=== PATIENT | female | born 1970 | race African-American/Black ===

== ENCOUNTER 2018-07-28 15:25 | Emergency (ER) | payer OTHER ==
[2018-07-28] MEDS ORDERED: AZITHROMYCIN 250 MG TAB ONE (16:19)
[2018-07-28] MEDS ORDERED: HYDROCODONE/CHLORPHEN 5 ML/OSYR ONE (16:19)
--- NOTE | 2018-07-28 16:31 | EDPHYS ---
Physician Documentation [facility] Name: Marily Parks Age: 48 yrs Sex: Female : 1970 Arrival Date: 07/28/2018 Time: 15:31 Bed 5 Private MD: None, None ED Physician Papi Pro HPI: 07/28 15:54 This 48 yrs old Black Female presents to ER via Ambulatory with complaints of Sore danie Throat. 15:54 The patient presents with sore throat. The patient describes throat pain as constant, danie raw, scratchy. Onset: The symptoms/episode began/occurred 2 day(s) ago. Severity of symptoms: At their worst the symptoms were mild, in the emergency department the symptoms are unchanged. Modifying factors: The symptoms are alleviated by nothing, the symptoms are aggravated by nothing. Associated signs and symptoms: The patient has no apparent associated signs or symptoms. The patient has not experienced similar symptoms in the past. Historical: - Allergies: 15:40 Iodine; aj1 - Home Meds: 15:40 lisinopril [Active]; carvedilol oral oral [Active]; aj1 - PMHx: 15:40 Hypertension; DVT; Pulmonary embolism; aj1 - Immunization history:: Flu vaccine is not up to date. - Social history:: Smoking status: Patient uses tobacco products, smokes one pack cigarettes per day. - Ebola Screening: : Patient denies travel to an Ebola-affected area in the 21 days before illness onset. - Family history:: not pertinent. ROS: 15:54 Constitutional: Negative for fever, chills, and weight loss, Eyes: Negative for injury, danie pain, redness, and discharge, ENT: Negative for injury, pain, and discharge, Neck: Negative for injury, pain, and swelling, Cardiovascular: Negative for chest pain, palpitations, and edema, Abdomen/GI: Negative for abdominal pain, nausea, vomiting, diarrhea, and constipation, Back: Negative for injury and pain, : Negative for injury, bleeding, discharge, and swelling, MS/Extremity: Negative for injury and deformity, Skin: Negative for injury, rash, and discoloration, Neuro: Negative for headache, weakness, numbness, tingling, and seizure, Psych: Negative for depression, anxiety, suicide ideation, homicidal ideation, and hallucinations, Allergy/Immunology: Negative for hives, rash, and allergies, Endocrine: Negative for neck swelling, polydipsia, polyuria, polyphagia, and marked weight changes, Hematologic/Lymphatic: Negative for swollen nodes, abnormal bleeding, and unusual bruising. 15:54 Respiratory: Positive for cough, with clear sputum. 15:59 Neck: Negative for danie 15:59 Cardiovascular: Negative for chest pain, orthopnea, palpitations, acute changes. Exam: 15:54 Constitutional: This is a well developed, well nourished patient who is awake, alert, danie and in no acute distress. Head/Face: Normocephalic, atraumatic. Eyes: Pupils equal round and reactive to light, extra-ocular motions intact. Lids and lashes normal. Conjunctiva and sclera are non-icteric and not injected. Cornea within normal limits. Periorbital areas with no swelling, redness, or edema. ENT: Nares patent. No nasal discharge, no septal abnormalities noted. Tympanic membranes are normal and external auditory canals are clear. Oropharynx with no redness, swelling, or masses, exudates, or evidence of obstruction, uvula midline. Mucous membranes moist. Neck: Trachea midline, no thyromegaly or masses palpated, and no cervical lymphadenopathy. Supple, full range of motion without nuchal rigidity, or vertebral point tenderness. No Meningismus. Chest/axilla: Normal chest wall appearance and motion. Nontender with no deformity. No lesions are appreciated. Cardiovascular: Regular rate and rhythm with a normal S1 and S2. No gallops, murmurs, or rubs. Normal PMI, no JVD. No pulse deficits. Respiratory: Lungs have equal breath sounds bilaterally, clear to auscultation and percussion. No rales, rhonchi or wheezes noted. No increased work of breathing, no retractions or nasal flaring. Abdomen/GI: Soft, non-tender, with normal bowel sounds. No distension or tympany. No guarding or rebound. No evidence of tenderness throughout. Back: No spinal tenderness. No costovertebral tenderness. Full range of motion. Skin: Warm, dry with normal turgor. Normal color with no rashes, no lesions, and no evidence of cellulitis. MS/ Extremity: Pulses equal, no cyanosis. Neurovascular intact. Full, normal range of motion. Neuro: Awake and alert, GCS 15, oriented to person, place, time, and situation. Cranial nerves II-XII grossly intact. Motor strength 5/5 in all extremities. Sensory grossly intact. Cerebellar exam normal. Normal gait. Psych: Awake, alert, with orientation to person, place and time. Behavior, mood, and affect are within normal limits. 15:54 Musculoskeletal/extremity: Extremities: all appear grossly normal, with no appreciated pain with palpation, Circulation is intact in all extremities. Pulses: are normal with no appreciated deficits, Compartment Syndrome exam of affected extremity: is normal. DVT Exam: No signs of deep vein thrombosis. no pain, no swelling, no tenderness, negative Homans' sign noted on exam, no appreciated bluish discoloration, no erythema, no increased warmth. 16:00 Cardiovascular: Heart sounds: normal, normal S1and S2, no S3 or S4, no murmur, no rub, danie no gallop, murmur, not appreciated, rub, not appreciated, gallop, not appreciated, Edema: is not appreciated, JVD: is not appreciated. Vital Signs: 15:40 BP 122 / 89; Pulse 75; Resp 18; Temp 97.4; Pulse Ox 99% on R/A; Weight 74.39 kg (R); aj1 Height 5 ft. 2 in. (157.48 cm) (R); Pain 6/10; 15:40 Body Mass Index 30.00 (74.39 kg, 157.48 cm) [facility] MDM: 15:45 Patient medically screened. [facility] 15:57 Data reviewed: vital signs. 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 [facility] 07/28 16:38 Order name: Urine Dipstick--Ancillary (enter results) 07/28 15:54 Order name: Chest Pa And Lat (2 Views) XRAY [facility] Administered Medications: 16:20 Drug: Tussionex Pennkinetic ER 5 ml Route: PO; la1 16:45 Follow up: Response: No adverse reaction [facility] 16:45 Drug: Zithromax 500 mg Route: PO; la1 16:45 Follow up: Response: No adverse reaction [facility] Disposition: 07/28/18 16:30 Discharged to Home. Impression: Acute pharyngitis, Cough. - Condition is Stable. - Discharge Instructions: Pharyngitis, Cool Mist Vaporizer, Pharyngitis, Byac-re-Nsdt, Cough, Adult, Ysjg-le-Hcnn, Cough, Adult, Sore Throat, Sjch-to-Ztsz. - Prescriptions for Cheratussin AC 10- 100 mg/5 mL Oral liquid - take 10 milliliter by ORAL route every 4 hours; 150 milliliter. Claritin 10 mg Oral Tablet - take 1 tablet by ORAL route once daily As needed; 15 tablet. Zithromax 500 mg Oral Tablet - take 1 tablet by ORAL route once daily for 4 days; 4 tablet. - Medication Reconciliation Form, Thank You Letter, Antibiotic Education, Prescription Opioid Use form. - Follow up: Private Physician; When: 2 - 3 days; Reason: Recheck today's complaints, Continuance of care, Re-evaluation by your physician. - Problem is new. - Symptoms have improved. Signatures: Dispatcher [employer] EDSusan Zavala RN RN aj1 Papi Pro MD MD cha Williams, Irene, RN RN iw Bj Garcia RN RN la1 Corrections: (The following items were deleted from the chart) 16:47 16:30 07/28/2018 16:30 Discharged to Home. Impression: Acute pharyngitis; Cough. iw Condition is Stable. Discharge Instructions: Pharyngitis, Cool Mist Vaporizer, Pharyngitis, Kcpt-hy-Fiit, Cough, Adult, Pktg-jb-Wobl, Cough, Adult, Sore Throat, [id number]-[id number]. Prescriptions for Cheratussin AC 10-100 mg/5 mL Oral liquid - take 10 milliliter by ORAL route every 4 hours; 150 milliliter, Claritin 10 mg Oral Tablet - take 1 tablet by ORAL route once daily As needed; 15 tablet, Zithromax Z-Jefferson 250 mg Oral Tablet - take 1 tablet by ORAL route as directed for 5 days Day 1 - take two (2) tablets one time. Day 2, 3, 4 , 5 take one (1) tablet once daily.; 6 tablet. and Forms are Medication Reconciliation Form, Thank You Letter, Antibiotic Education, Prescription Opioid Use. Follow up: Private Physician; When: 2 - 3 days; Reason: Recheck today's complaints, Continuance of care, Re-evaluation by your physician. Problem is new. Symptoms have improved. danie
--- NOTE | 2018-07-28 16:31 | ER ---
Nurse's Notes [facility] Name: Marily Parks Age: 48 yrs Sex: Female : 1970 Arrival Date: 07/28/2018 Time: 15:31 Bed 5 Private MD: None, None Diagnosis: Acute pharyngitis;Cough Presentation: 07/28 15:35 Presenting complaint: Patient states: She just got home from a cruise and when she got aj1 home her blood pressure got high and her foot started swelling and now she's starting to have a cough as well. Denies fever. Transition of care: patient was not received from another setting of care. Onset of symptoms was July 25, 2018. Risk Assessment: Do you want to hurt yourself or someone else? Patient reports no desire to harm self or others. Initial Sepsis Screen: Does the patient meet any 2 criteria? No. Patient's initial sepsis screen is negative. Does the patient have a suspected source of infection? No. Patient's initial sepsis screen is negative. Care prior to arrival: None. 15:35 [facility] 15:35 Acuity: OLEKSANDR 3 aj1 Triage Assessment: 15:40 General: Appears in no apparent distress. uncomfortable, Behavior is calm, cooperative, aj1 appropriate for age. Pain: Complains of pain in back Pain currently is 6 out of 10 on a pain scale. EENT: Reports sore throat. Neuro: Level of Consciousness is awake, alert, obeys commands. Cardiovascular: Patient's skin is warm and dry. Respiratory: Airway is patent Respiratory effort is even, unlabored, Respiratory pattern is regular, symmetrical. Historical: - Allergies: 15:40 Iodine; aj1 - Home Meds: 15:40 lisinopril [Active]; carvedilol oral oral [Active]; aj1 - PMHx: 15:40 Hypertension; DVT; Pulmonary embolism; aj1 - Immunization history:: Flu vaccine is not up to date. - Social history:: Smoking status: Patient uses tobacco products, smokes one pack cigarettes per day. - Ebola Screening: : Patient denies travel to an Ebola-affected area in the 21 days before illness onset. - Family history:: not pertinent. Screenin:06 Abuse screen: Denies threats or abuse. Nutritional screening: On. Tuberculosis la1 screening: No symptoms or risk factors identified. Fall Risk None identified. Assessment: 16:05 General: Appears in no apparent distress. Behavior is calm, cooperative. Neuro: Level la1 of Consciousness is awake, alert, obeys commands, Oriented to person, place, time, situation. Cardiovascular: Heart tones S1 S2 present. Respiratory: Airway is patent Trachea midline Respiratory effort is even, unlabored, Respiratory pattern is regular, symmetrical, Breath sounds are clear bilaterally. Respiratory: Parent/caregiver reports the patient having cough that is non-productive. GI: No signs and/or symptoms were reported involving the gastrointestinal system. : No signs and/or symptoms were reported regarding the genitourinary system. Vital Signs: 15:40 BP 122 / 89; Pulse 75; Resp 18; Temp 97.4; Pulse Ox 99% on R/A; Weight 74.39 kg (R); aj1 Height 5 ft. 2 in. (157.48 cm) (R); Pain 6/10; 15:40 Body Mass Index 30.00 (74.39 kg, 157.48 cm) aj1 ED Course: 15:31 Patient arrived in ED. mr 15:31 None, None is Private Physician. mr 15:37 Triage completed. aj1 15:40 Arm band placed on Patient placed in an exam room. aj1 15:45 Papi Pro MD is Attending Physician. danie 15:50 Bj Garcia, MICHAEL is Primary Nurse. la1 16:06 Bed in low position. la1 16:43 Chest Pa And Lat (2 Views) XRAY In Process Unspecified. EDMS 16:49 No provider procedures requiring assistance completed. Patient did not have IV access la1 during this emergency room visit. Administered Medications: 16:20 Drug: Tussionex Pennkinetic ER 5 ml Route: PO; la1 16:45 Follow up: Response: No adverse reaction la1 16:45 Drug: Zithromax 500 mg Route: PO; la1 16:45 Follow up: Response: No adverse reaction la1 Outcome: 16:30 Discharge ordered by . danie 16:47 Patient left the ED. iw 16:50 Discharged to home ambulatory. la1 16:50 Condition: stable 16:50 Discharge instructions given to patient, Instructed on discharge instructions, follow up and referral plans. medication usage, Demonstrated understanding of instructions, follow-up care, medications, Prescriptions given X 3. Signatures: Dispatcher [employer] Susan Mcdowell RN RN aj1 Papi Pro MD MD cha Rivera, Fabby mr Patt Fernandez RN RN iw Attema, Lee, RN RN la1
--- NOTE | 2018-07-28 16:49 | RAD REPORT ---
EXAM DESCRIPTION: RAD - Chest Pa And Lat (2 Views) - 07/28/2018 4:43 pm CLINICAL HISTORY: COUGH Chest pain. COMPARISON: No comparisons FINDINGS: The lungs are clear. The heart is normal in size. No displaced fractures. Mild thoracic de xtroscoliosis. IMPRESSION: No acute or concerning finding suspected.
[2018-07-28 16:50] LABS: Urine Blood 2+ (NEG); Urine Glucose NEGATIVE (NEG); Urine Protein TRACE (NEG)
== END 2018-07-28 16:47 | disposition home or self-care (01) ==
LOC: ER 15:25
DX: J02.9 Acute pharyngitis, unspecified (principal); R05 Cough; F17.210 Nicotine dependence, cigarettes, uncomplicated; I10 Essential (primary) hypertension; Z79.899 Other long term (current) drug therapy; Z86.711 Personal history of pulmonary embolism; Z86.718 Personal history of other venous thrombosis and embolism
CPT/HCPCS: 71046; 81003; 99283

== ENCOUNTER 2018-09-19 15:36 | Emergency (ER) | payer OTHER ==
[2018-09-19] MEDS ORDERED: METHYLPREDNISOLONE 125 MG INJ ONE (16:26)
--- NOTE | 2018-09-19 17:28 | EDPHYS ---
Physician Documentation [facility] Name: Marily Parks Age: 48 yrs Sex: Female : 1970 Arrival Date: 09/19/2018 Time: 15:39 Bed 11 Private MD: ED Physician Zach Ibrahim HPI: 09/19 17:39 This 48 yrs old Black Female presents to ER via Ambulatory with complaints of Headache, kb Body Aches. 17:41 The patient or guardian reports nasal congestion. Onset: The symptoms/episode kb began/occurred last week. Severity of symptoms: At their worst the symptoms were mild, in the emergency department the symptoms are unchanged. Modifying factors: The symptoms are alleviated by nothing, the symptoms are aggravated by nothing. Associated signs and symptoms: Pertinent positives: nasal congestion. The patient has not experienced similar symptoms in the past. The patient has not recently seen a physician. Pt reports nasal congestion since last week. Denies fever. . Historical: - Allergies: 15:52 Iodine; hb - Home Meds: 15:52 carvedilol Oral [Active]; Lisinopril [Active]; hb - PMHx: 15:52 DVT; Hypertension; Pulmonary Embolism; hb - Immunization history:: Adult Immunizations up to date. - Social history:: Smoking status: Patient uses tobacco products, smokes one pack cigarettes per day. - Ebola Screening: : No symptoms or risks identified at this time. ROS: 17:42 Constitutional: Negative for fever, chills, and weight loss, Cardiovascular: Negative kb for chest pain, palpitations, and edema, Respiratory: Negative for shortness of breath, cough, wheezing, and pleuritic chest pain, Abdomen/GI: Negative for abdominal pain, nausea, vomiting, diarrhea, and constipation, MS/Extremity: Negative for injury and deformity, Skin: Negative for injury, rash, and discoloration, Neuro: Negative for headache, weakness, numbness, tingling, and seizure. 17:42 ENT: Positive for sinus congestion. Exam: 17:42 Constitutional: This is a well developed, well nourished patient who is awake, alert, kb and in no acute distress. Head/Face: Normocephalic, atraumatic. ENT: Nares patent. No nasal discharge, no septal abnormalities noted. Tympanic membranes are normal and external auditory canals are clear. Oropharynx with no redness, swelling, or masses, exudates, or evidence of obstruction, uvula midline. Mucous membranes moist. Neck: Trachea midline, no thyromegaly or masses palpated, and no cervical lymphadenopathy. Supple, full range of motion without nuchal rigidity, or vertebral point tenderness. No Meningismus. Chest/axilla: Normal chest wall appearance and motion. Nontender with no deformity. No lesions are appreciated. Cardiovascular: Regular rate and rhythm with a normal S1 and S2. No gallops, murmurs, or rubs. Normal PMI, no JVD. No pulse deficits. Respiratory: Lungs have equal breath sounds bilaterally, clear to auscultation and percussion. No rales, rhonchi or wheezes noted. No increased work of breathing, no retractions or nasal flaring. Abdomen/GI: Soft, non-tender, with normal bowel sounds. No distension or tympany. No guarding or rebound. No evidence of tenderness throughout. Skin: Warm, dry with normal turgor. Normal color with no rashes, no lesions, and no evidence of cellulitis. MS/ Extremity: Pulses equal, no cyanosis. Neurovascular intact. Full, normal range of motion. Neuro: Awake and alert, GCS 15, oriented to person, place, time, and situation. Cranial nerves II-XII grossly intact. Motor strength 5/5 in all extremities. Sensory grossly intact. Cerebellar exam normal. Normal gait. Vital Signs: 15:51 BP 127 / 63; Pulse 68; Resp 16; Temp 98.3; Pulse Ox 98% on R/A; Pain 9/10; hb MDM: 15:59 Patient medically screened. kb 17:40 Data reviewed: vital signs, nurses notes. Data interpreted: Pulse oximetry: on room air kb is 98 %. Interpretation: normal. Counseling: I had a detailed discussion with the patient and/or guardian regarding: the historical points, exam findings, and any diagnostic results supporting the discharge/admit diagnosis, lab results, the need for outpatient follow up, a family practitioner, to return to the emergency department if symptoms worsen or persist or if there are any questions or concerns that arise at home. 09/19 15:51 Order name: Strep; Complete Time: 16:34 hb 09/19 15:51 Order name: Flu; Complete Time: 16:54 hb 09/19 16:38 Order name: Throat Culture [facility] Administered Medications: 16:20 Drug: SOLU-Medrol 125 mg Route: IM; Site: right gluteus; ss Disposition: 09/19/18 17:27 Discharged to Home. Impression: Nasal congestion. - Condition is Stable. - Discharge Instructions: Nasal Allergies, Kskq-[id number]. - Medication Reconciliation Form, Thank You Letter, Antibiotic Education, Prescription Opioid Use form. - Follow up: Emergency Department; When: As needed; Reason: Worsening of condition. Follow up: Private Physician; When: 2 - 3 days; Reason: Recheck today's complaints, Continuance of care, Re-evaluation by your physician. Addendum: 09/26/2018 09:33 Co-signature as Attending Physician, Zach Ibrahim MD I agree with the assessment and k dr plan of care. Signatures: Dispatcher [employer] [facility] Kira Rogers, GEMINI-C VARIETY SAW OPERATOR-Zach Aguirre MD MD [facility] [address] Renee Null RN RN Ayanna Fernando RN RN Corrections: (The following items were deleted from the chart) 09/19 18:02 17:27 09/19/2018 17:27 Discharged to Home. Impression: Nasal congestion. Condition is ss Stable. Forms are Medication Reconciliation Form, Thank You Letter, Antibiotic Education, Prescription Opioid Use. Follow up: Emergency Department; When: As needed; Reason: Worsening of condition. Follow up: Private Physician; When: 2 - 3 days; Reason: Recheck today's complaints, Continuance of care, Re-evaluation by your physician. kb
--- NOTE | 2018-09-19 17:28 | ER ---
Nurse's Notes [facility] Name: Marily Parks Age: 48 yrs Sex: Female : 1970 Arrival Date: 09/19/2018 Time: 15:39 Bed 11 Private MD: Diagnosis: Nasal congestion Presentation: 09/19 15:49 Presenting complaint: Diarrhea, productive cough, sinus congestion, sore throat, and hb body aches x 3 days. Transition of care: patient was not received from another setting of care. Onset of symptoms was September 16, 2018. Risk Assessment: Do you want to hurt yourself or someone else? Patient reports no desire to harm self or others. Initial Sepsis Screen: Does the patient meet any 2 criteria? No. Patient's initial sepsis screen is negative. Does the patient have a suspected source of infection? No. Patient's initial sepsis screen is negative. Care prior to arrival: None. 15:49 Method Of Arrival: Ambulatory hb 15:49 Acuity: OLEKSANDR 4 hb Historical: - Allergies: 15:52 Iodine; hb - Home Meds: 15:52 carvedilol Oral [Active]; Lisinopril [Active]; hb - PMHx: 15:52 DVT; Hypertension; Pulmonary Embolism; hb - Immunization history:: Adult Immunizations up to date. - Social history:: Smoking status: Patient uses tobacco products, smokes one pack cigarettes per day. - Ebola Screening: : No symptoms or risks identified at this time. Screenin:15 Abuse screen: Denies threats or abuse. Denies injuries from another. Nutritional ss screening: No deficits noted. Tuberculosis screening: No symptoms or risk factors identified. Never had TB. Fall Risk None identified. Assessment: 16:15 General: Appears in no apparent distress. comfortable, Behavior is calm, cooperative, ss Reports feeling ill for 2-3 days, Denies fever. Pain: Complains of pain in general body aches Pain currently is 8 out of 10 on a pain scale. Quality of pain is described as aching. Neuro: Level of Consciousness is awake, alert, obeys commands, Oriented to person, place, time, situation. Cardiovascular: Capillary refill < 3 seconds is brisk in bilateral fingers. Respiratory: Airway is patent Respiratory effort is even, unlabored, Respiratory pattern is regular, symmetrical. EENT: Oral mucosa is moist. Throat is clear. EENT: Reports nasal congestion. Derm: Skin is intact, is healthy with good turgor, Skin is dry, Skin is pink, warm \T\ dry. normal. Musculoskeletal: Circulation, motion, and sensation intact. Range of motion: intact in all extremities, Swelling absent. Vital Signs: 15:51 BP 127 / 63; Pulse 68; Resp 16; Temp 98.3; Pulse Ox 98% on R/A; Pain 9/10; hb ED Course: 15:39 Patient arrived in ED. rg4 15:51 Triage completed. hb 15:51 Arm band placed on. hb 15:58 Kira Rogers FNP-C is PHCP. kb 15:58 Zach Ibrahim MD is Attending Physician. kb 16:15 Patient has correct armband on for positive identification. Bed in low position. Call ss light in reach. 16:20 Renee Null, MICHAEL is Primary Nurse. ss 18:01 No provider procedures requiring assistance completed. Patient did not have IV access ss during this emergency room visit. Administered Medications: 16:20 Drug: SOLU-Medrol 125 mg Route: IM; Site: right gluteus; ss Outcome: 17:27 Discharge ordered by . kb 18:01 Discharged to home ambulatory. ss 18:01 Condition: good 18:01 Discharge instructions given to patient, family, Instructed on discharge instructions, follow up and referral plans. Demonstrated understanding of instructions, follow-up care, medications. 18:02 Patient left the ED. ss Signatures: Kira Rogers FNP-C FNP-Renee Koenig RN RN Ayanna Fernando RN RN Nette Frederick rg4
== END 2018-09-19 18:02 | disposition home or self-care (01) ==
LOC: ER 15:36
DX: R09.81 Nasal congestion (principal); Z88.8 Allergy status to other drugs, medicaments and biological substances; I82.409 Acute embolism and thrombosis of unspecified deep veins of unspecified lower extremity; I10 Essential (primary) hypertension; F17.210 Nicotine dependence, cigarettes, uncomplicated
CPT/HCPCS: 87070; 87081; 87804 ×2; J2930

== ENCOUNTER 2020-03-24 12:05 | Emergency (ER) | payer OTHER ==
--- OUTSIDE RECORDS SUMMARY | 2020-03-24 12:31 | XMS REPORT | Summary of Care ---
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 [address] , [address] [place] [address] Phone: Fax: Encounter Details Date Type Department Care Team Description 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 FLUoxetine 20 mg Take 1 capsule 30 capsule 0 10/19/2017 Active capsuleIndications: by mouth daily. Other depression metroNIDAZOLE (FLAGYL) Take 1 tablet by 14 tablet 0 10/19/2017 Active 500 mg mouth 2 (two) tabletIndications: times daily. Bacterial vaginosis buPROPion SR Take 1 tablet by 30 tablet 0 11/02/2017 Active (WELLBUTRIN SR) 150 mg mouth daily. SR tabletIndications: Other depression acetaminophen-codeine Take 1 tablet by 5 tablet 0 10/17/2018 Active (TYLENOL-CODEINE #3) mouth every 4 300-30 mg (four) hours as tabletIndications: needed for Pain Facial laceration, (scale 4-6). initial encounter CARVEDILOL ORAL Take by mouth. 0 Active documented as of this encounter (statuses as of 01/28/2020) Active Problems Problem Noted Date Abnormality of both breasts on screening mammogram Overview: IMPRESSION: RIGHT BREAST: Benign, no evidence of mal ignancy. Normal interval follow-up is recommended in 12 months. LEFT BREAST: Negative, no evidence of ma lignancy. Normal interval follow-up is recommended in 12 months. OVERALL ASSESSMENT - CATEGORY 2 - BENIGN END OF IMPRESSION Obesity (BMI 30.0-34.9) 10/19/2017 documented as of this encounter (statuses as of 01/28/2020) Resolved Problems Problem Noted Date Resolved Date Obesity (BMI 30-39.9) 07/23/2016 10/19/2017 documented as of this encounter (statuses as of 01/28/2020) Immunizations Name Administration Dates Next Due Td 10/16/2018 documented as of this encounter Social History Tobacco Use Types Packs/Day Years Used Date Current Every Day Smoker Cigarettes 1 2 Sta rted: 09/03/2015 Smokeless Tobacco: Never Used Alcohol Use Drinks/Week oz/Week Comments Yes Sex Assigned at Date Recorded Not on file Job Start Date Occupation Industry Not on file Not on file Not on file Travel History Travel Start Travel End No recent travel history available. COVID-19 Exposure Response Date Recorded In the last month, have you been in contact with No / Unsure 01/28/2020 2:12 PM CDT someone who was confirmed or suspected to have Coronavirus / COVID-19? documented as of this encounter Last Filed Vital Signs Not on filedocumented in this encounter Plan of Treatment Date Type Specialty Care Team Description 02/04/2020 Office Visit Orthopedic Surgery Karyn Zhu MD [address] [phone] Name Type Priority Associated Diagnoses Date/Ti me CBC WITH DIFF LAB Routine Chronic pain of multiple 4:06 PM CDT joints CBC WITH DIFFERENTIAL LAB Routine Chronic pain of mul tiple 01/28/2020 4:06 PM CDT joints Health Maintenance Due Date Last Done Comments DTaP,Tdap,and Td Vaccines (1 1982 10/16/2018 - Tdap) Breast Cancer Screening 11/21/2018 11/21/2017 (MAMMOGRAM) INFLUENZA VACCINE (Season 05/04/2020 Ended) PAP SMEAR 10/19/2020 10/19/2017, 08/10/2005, 07/05/2004 PNEUMOCOCCAL 0-64 YEARS Aged Out No longe r eligible based COMBINED SERIES on patient's age to complete this to pic documented as of this encounter Results Not on filedocumented in this encounter Visit Diagnoses Diagnosis Chronic pain of multiple joints Pain in joint, multiple sites documented in this encounter Insurance Payer Benefit Plan / Subscriber ID Effective Dates Phone Addre ss Type Group [facility] STAR xxxxxxxxx 2017-Present Medicaid COMM PLAN - PLUS MANAGED MEDICAID documented as of this encounter Advance Directives Name Relationship Healthcare Agent Communication Relationship Virgil Howard Significant Other Primary healthcare agent
--- OUTSIDE RECORDS SUMMARY | 2020-03-24 12:31 | XMS REPORT | Summary of Care ---
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 [address] [place] [address] [address] [place] [address] Phone: Fax: Encounter Details Date Type Department Care Team Description 01/28/2020 Hospital En[facility] Rad[facility] [address] [place] [place] [address] [place] [address] [place], [place] [phone] Allergies Active Allergy Reactions Severity Noted Date Comments Iodine Anxiety 07/23/2016 documented as of this encounter (statuses as of 01/29/2020) Medications Medication Sig Dispensed Refills Start Date [...] as of this encounter (statuses as of 01/29/2020) Active Problems Problem Noted Date Abnormality of [...] as of this encounter (statuses as of 01/29/2020) Resolved Problems Problem Noted Date Resolved Date Obesity (BMI 30-39.9) 07/23/2016 10/19/2017 documented as of this encounter (statuses as of 01/29/2020) Immunizations Name Administration Dates Next Due Td [...] Office Visit Orthopedic Surgery Karyn Zhu MD [address] [phone] Name Type Priority Associated Diagnoses Date/Ti me XR HAND 3+ VW BILATERAL IMAGING Routine Chronic pain of 0 01/28/2020 2:19 PM multiple joints CDT Name Type Priority Associated Diagnoses Order S chedule XR HAND 3+ VW IMAGING Routine Chronic pain of 1 Occurrenc es starting BILATERAL multiple joints 01/28/2020 u ntil 01/28/2020 Health Maintenance Due Date Last Done Comments PNEUMOCOCCAL 0-64 YEARS COMBINED 1977 SERIES (1 of 1 - PPSV23) DTaP,Tdap,and Td Vaccines (1 - Tdap) 1982 10/16/2018 Breast Cancer Screening (MAMMOGRAM) 11/21/2018 11/21/2017 INFLUENZA VACCINE (Season Ended) 2020 PAP SMEAR 10/19/2020 10/19/2017, 08/10/2005, 07/05/2004 documented as of this encounter Results Not on filedocumented in this encounter Visit Diagnoses Diagnosis Chronic pain of multiple joints Pain in joint, multiple sites documented in this encounter Insurance Payer Benefit Plan / Subscriber ID Effective Phone Address T ype Group Dates [facility] STAR xxxxxxxxx 2017-Prese Medicaid HEALTHCARE COMM PLUS nt PLAN - MANAGED MEDICAID [facility] [id number] 2020-Prese Medic are Adv HEALTHCARE - HEALTHCARE DUAL nt H [place] MANAGED COMPLETE HMO MEDICARE documented as of this encounter Advance Directives Name Relationship Healthcare Agent Communication Relationship Virgil Howard Significant Other Primary healthcare agent
--- OUTSIDE RECORDS SUMMARY | 2020-03-24 12:31 | XMS REPORT | Summary of Care ---
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 [address] [place] [address] [address] [place] [address] Phone: Fax: Encounter Details Date Type Department Care Team Description 01/28/2020 Hospital [facility] [address] [place] [address] [place] [address] [place], [place] [phone] Allergies Active Allergy Reactions Severity Noted Date [...] Orthopedic Surgery Karyn Zhu MD [address] [phone] Name Type Priority Associated Diagnoses Date/Ti me XR KNEE 3 VW BILATERAL IMAGING Routine Chronic pain of 2:18 PM multiple joints CDT Name Type Priority Associated Diagnoses Order S chedule XR KNEE 3 VW BILATERAL IMAGING Routine Chronic pain of 1 Occurrences starting multiple joints 01/28/2020 u ntil 01/28/2020 Health [...] / Subscriber ID Effective Phone Address T e Group [facility] STAR xxxxxxxxx 2017-Prese Medicaid HEALTHCARE COMM PLUS nt PLAN - MANAGED MEDICAID [facility] [id number] 2020-Prese Medic are Adv HEALTHCARE - HEALTHCARE DUAL nt H MO MANAGED COMPLETE HMO MEDICARE documented as of this encounter Advance Directives Name Relationship Healthcare Agent Communication Relationship Virgil Howard Significant Other Primary healthcare agent
--- OUTSIDE RECORDS SUMMARY | 2020-03-24 12:31 | XMS REPORT | Continuity of Care Document ---
:[address] [facility] t Address [address] [place] [address] Care Team Providers Name Role Phone Hever Zhu MD Attending Clinician Problems This patient has no known problems. Allergies, Adverse Reactions, Alerts This patient has no known allergies or adverse reactions. Medications This patient has no known medications. Procedures This patient has no known procedures. Encounters Start End Encounter Admission Attending Care Care Encounter Source Date/Time Date/Time Type Type Clinicians Facility Department ID 2020-02-04 2020-02-04 Office ALIZE Zhu [phone] [id number] 16:01:00 16:27:25 Visit [facility] [id number] Surgical [id number] [facility] [id number] [address] Results This patient has no known results.
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
--- OUTSIDE RECORDS SUMMARY | 2020-03-24 12:32 | XMS REPORT | Summary of Care ---
:1970 Author Organization [facility] Address [address] [place] [address] Care Team Providers Name Role Phone Suzanne Hinkle Primary Care Provider Reason for Visit Reason Comments Follow-up Results Encounter Details Date Type Department Care Team Description 02/04/2020 Office Visit [facility] Orthopaedic Ben Zhu hronic pain of Surgery- Lokesh Kathleen MD multiple joints [address], [address] (Primary [address]x) [address] [place] [address] [place] [address] [address] [place], [place] [phone] Allergies Active Allergy Reactions Severity Noted [...] Body Mass Index 33.65 10/28/2018 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
--- OUTSIDE RECORDS SUMMARY | 2020-03-24 12:32 | XMS REPORT | Summary of Care ---
:1970 Author Organization [facility] - Health Address [address] [place] [address] Care Team Providers Name Role Phone Suzanne Hinkle Primary Care Provider Encounter Details Date Type Department Care Team Description 02/04/2020 Orders Only [facility] Doctor Unassigned, No [address] [facility] [place] [address] [address] [place] [address] Allergies Active Allergy Reactions Severity Noted Date Comments Iodine Anxiety 07/23/2016 documented as of this encounter (statuses as of 02/04/2020) Medications Medication Sig Dispensed Refills Start Date [...] as of this encounter (statuses as of 02/04/2020) Active Problems Problem Noted Date Abnormality of [...] as of this encounter (statuses as of 02/04/2020) Resolved Problems Problem Noted Date Resolved Date Obesity (BMI 30-39.9) 07/23/2016 10/19/2017 documented as of this encounter (statuses as of 02/04/2020) Immunizations Name Administration Dates Next Due Td [...] Office Visit Orthopedic Surgery Karyn Zhu MD Arrived [address] [place] [address] [phone] Health Maintenance Due Date Last Done Comments PNEUMOCOCCAL 0-64 YEARS COMBINED 1977 SERIES (1 of 1 - PPSV23) DTaP,Tdap,and Td Vaccines (1 - Tdap) 1982 10/16/2018 Breast Cancer Screening (MAMMOGRAM) 11/21/2018 11/21/2017 INFLUENZA VACCINE (Season Ended) 2020 PAP SMEAR 10/19/2020 10/19/2017, 08/10/2005, 07/05/2004 Depression Screening 01/27/2021 01/28/2020 documented as of this encounter Procedures Procedure Name Priority Date/Time Associated Diagnosis Comme nts NOTICE OF BILLING Routine 02/04/2020 4:00 PM CDT PRACTICES FOR MEDICARE PATIENTS documented in this encounter Results Not on filedocumented in this encounter Insurance Payer Benefit Plan / Subscriber ID Effective Phone Address T ype Group Dates [facility] [id number] 2017-Prese Medic are Adv HEALTHCARE - HEALTHCARE DUAL nt P PO MANAGED COMPLETE MEDICARE [facility] [place] STAR xxxxxxxxx 2017-Prese Medicaid HEALTHCARE COMM PLUS nt PLAN - MANAGED MEDICAID [facility] [id number] 2020-Prese Medic are Adv HEALTHCARE - HEALTHCARE DUAL nt H MO MANAGED COMPLETE HMO MEDICARE documented as of this encounter Advance Directives Name Relationship Healthcare Agent Communication Relationship Virgil Howard Significant Other Primary healthcare agent
--- OUTSIDE RECORDS SUMMARY | 2020-03-24 12:32 | XMS REPORT | Summary of Care ---
:1970 Author Organization [facility] Address [address] [place] [address] Care Team Providers Name Role Phone Suzanne Hinkle Primary Care Provider Reason for Referral Radiology Services (Routine) Status Reason Specialty Diagnoses / Referred By Referred To Procedures Contact Contact New Request Diagnostic Diagnoses Chronic pain of multiple joints Ben Zhu Radiology Procedures XR HAND 3+ VW BILATERAL MD Soraya [facility] [place] [address] Radiology Services (Routine) Status Reason Specialty Diagnoses / Referred By Referred To Procedures Contact Contact New Request Diagnostic Diagnoses Chronic pain of multiple joints Ben Zhu Radiology Procedures XR KNEE 3 VW BILATERAL MD [address] [place] [address] [place] [address] Reason for Visit Reason Comments Knee Pain bilateral Arthritis hands Auth/Cert Status Reason Specialty Diagnoses / Procedures Referred By C husam Referred To Contact Phlebotomy Diagnoses Chronic pain of multiple joints Adc Pob Lab Draw Procedures CBC URIC ACID STREP O AB (ASO) SED RATE RH FACTOR C REACTIVE PROTEIN ANTI-NUC AB 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 [address] [place] [address] Phone: Fax: Encounter Details Date Type Department Care Team Description 01/28/2020 Office Visit [facility] Orthopaedic Ben Zhu hronic pain of Surgery- Lokesh Kathleen MD multiple joints [address], [address] (Primary Dx) [address] [place] [address] [place] [address] [address] [place], [place] [phone] [address] [phone] Allergies Active Allergy Reactions Severity Noted Date [...] Body Mass Index 33.32 10/28/2018 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 Progress Notes Ben [...] file Gets together: Not on file Attends shinto service: Not on file Active member of [...] Office Visit Orthopedic Surgery Karyn Zhu MD [address] [place] [address] [phone] Name Type Priority Associated Diagnoses Date/Ti [...] 2.9 - 6.0 mg/dL [facility] Specimen Blood Performing Organization Address City/[facility] Phone Number [facility] CLIA: [id number], [address] [place] [address] SEDIMENTATION RATE (01/28/2020 4:06 PM CDT) Pathologist Sig nature ESR 48 (H) 0 - 20 mm/HR [facility] Specimen Blood Performing Organization Address City/[facility]/Zipcode Phone Number [facility] CLIA: [id number], [address] [place] [address] RHEUMATOID FACTOR (01/28/2020 4:06 PM CDT) Pathologist Sig nature RF <20 <20 IU/mL [facility] Specimen Blood Performing Organization Address City/[facility]/Zipcode Phone Number [facility] CLIA: [id number], [address] [place] [address] [address] [facility] C-REACTIVE PROTEIN (01/28/2020 4:06 PM CDT) Pathologist Sig nature CRP 0.5 <0.8 mg/dL [facility] Specimen Blood Performing Organization Address City/[facility]/Zipcode Phone Number [facility] CLIA: [id number], [address] [place] [address] [address] [facility] XR HAND 3+ VW BILATERAL (01/28/2020 2:19 [...] mild degenerative changes PACS Performing Organization Address City/State[facility] Phone Number PACS documented in this encounter Visit Diagnoses Diagnosis Chronic pain of multiple joints - Primar y Pain in joint, multiple sites documented in this encounter Insurance Payer Benefit Plan / Subscriber ID Effective Phone Address T ype Group Dates [facility] [place] STAR xxxxxxxxx 2017-Prese Medicaid HEALTHCARE COMM PLUS nt PLAN - MANAGED MEDICAID [facility] [id number] 2020-Prese Medic are Adv HEALTHCARE - HEALTHCARE DUAL nt H MO MANAGED COMPLETE HMO MEDICARE documented as of this encounter Advance Directives Name Relationship Healthcare Agent Communication Relationship Virgil Howard Significant Other Primary healthcare agent "
--- NOTE | 2020-03-24 15:14 | RAD REPORT ---
EXAM DESCRIPTION: CT - Stone Protocol - 03/24/2020 2:53 pm CLINICAL HISTORY: Abdominal pain. Flank pain COMPARISON: None. TECHNIQUE: Computed axial tomography of the abdomen pelvis was obtained without oral or IV contrast. Lack of IV and oral contrast limits evaluation of solid organs, bowel, and vessels. Coronal reformat candido images were obtained and reviewed. All CT scans are performed using dose optimization technique as appropriate and may include automated exposure control or mA/KV adjustment according to patient size. FINDINGS: A renal calculus is not seen. An ureteral calculus is not noted. A bladder calculus is not present. The liver, spleen, pancreas and adrenals appear grossly normal Diverticula stem from the colon without evidence of diverticulitis. The appendix appears normal The uterus is enlarged and lobulated measuring 16 x 9 x 12 centimeters. Mild anterior subluxation L5 on S1. Spondylosis results in spinal stenosis at this level IMPRESSION: Negative for a genitourinary calculus Enlarged uterus probably secondary to fibroids
--- NOTE | 2020-03-24 15:44 | ER ---
Nurse's Notes [facility] Name: Marily Parks Age: 49 yrs Sex: Female : 1970 Arrival Date: 03/24/2020 Time: 12:16 Bed 27 Private MD: Diagnosis: Low back pain Presentation: 03/24 12:52 Chief complaint: Patient states: Left back and leg pain, right shoulder pain x 1 week, jl7 denies trauma. Coronavirus screen: Patient denies a cough. Patient denies shortness of breath or difficulty breathing. Patient denies measured and/or subjective temperature greater than 100.4F prior to today's visit. Patient denies travel on a cruise ship or to a country the [facility] currently lists as an affected area. Patient denies contact with known and/or suspected case of COVID-19. Proceed with normal triage. Ebola Screen: No symptoms or risks identified at this time. Initial Sepsis Screen: Does the patient meet any 2 criteria? No. Patient's initial sepsis screen is negative. Does the patient have a suspected source of infection? No. Patient's initial sepsis screen is negative. Risk Assessment: Do you want to hurt yourself or someone else? Patient reports no desire to harm self or others. Onset of symptoms was March 18, 2020. Care prior to arrival: None. 12:52 Method Of Arrival: Ambulatory [facility] 12:52 Acuity: OLEKSANDR 4 jl7 14:04 Chief complaint: Patient states: "My left side hurts 10/10 and it radiates down my leg vc to the point to where I noticed I'm dragging my left leg when I walk.". Triage Assessment: 12:54 General: Appears in no apparent distress. uncomfortable, Behavior is calm, cooperative, jl7 appropriate for age. Pain: Complains of pain in right shoulder, left side of back and left leg. 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 - Social history:: Smoking status: Patient reports the use of cigarette tobacco products, smokes one-half pack cigarettes per day. Screenin:06 Abuse screen: Denies threats or abuse. Nutritional screening: No deficits noted. vc Tuberculosis screening: No symptoms or risk factors identified. Fall Risk No fall in past 12 months (0 pts). Secondary diagnosis (15 points) Pain to left leg causing her to drag it.. No IV (0 pts). Ambulatory Aid- None/Bed Rest/Nurse Assist (0 pts). Gait- Weak (10 pts.). Mental Status- Oriented to own ability (0 pts). Total Monroy Fall Scale indicates Low Risk Score (25-44 pts). Fall prevention measures have been instituted. Placed close to Nursing Station Frequent Obs/Assesments occuring. Assessment: 14:09 General: Appears in no apparent distress. comfortable, Behavior is calm, cooperative, vc appropriate for age. Pain: Complains of pain in Right shoulder, posterior aspect of left lateral abdomen and anterior aspect of left lateral abdomen Pain radiates to left leg Pain currently is 10 out of 10 on a pain scale. Quality of pain is described as sharp, Pain began "about a week ago" Is continuous. Neuro: Level of Consciousness is awake, alert, obeys commands, Oriented to person, place, time, situation, Appropriate for age. Cardiovascular: Capillary refill < 3 seconds Patient's skin is warm and dry. Respiratory: Airway is patent Respiratory effort is even, unlabored, Respiratory pattern is regular, symmetrical. GI: No signs and/or symptoms were reported involving the gastrointestinal system. : No signs and/or symptoms were reported regarding the genitourinary system. Derm: Skin is intact, is healthy with good turgor, Skin temperature is warm. Musculoskeletal: Circulation, motion, and sensation intact. Range of motion: intact in all extremities. Vital Signs: 12:52 BP 123 / 74; Pulse 71; Resp 17; Temp 98.8; Pulse Ox 100% ; Weight 83.46 kg; Height 5 jl7 ft. 2 in. (157.48 cm); Pain 10/10; 15:00 BP 106 / 71; Pulse 54; Resp 17; Pulse Ox 100% ; vc 15:48 BP 96 / 69; Pulse 59; Resp 17; Pulse Ox 100% on R/A; vc 12:52 Body Mass Index 33.65 (83.46 kg, 157.48 cm) 7 ED Course: 12:16 Patient arrived in ED. fj1 12:53 Triage completed. jl7 12:54 Arm band placed on right wrist. Patient placed in waiting room, Patient notified of jl7 wait time. 13:51 Carli Stephenson, RN is Primary Nurse. vc 14:07 Placed in gown. Bed in low position. Call light in reach. Pulse ox on. NIBP on. Warm vc blanket given. 14:17 Kira Rogers FNP-C is PHCP. kb 14:17 Qamar Gregorio MD is Attending Physician. kb 14:53 CT Stone Protocol In Process Unspecified. EDMS 15:57 No provider procedures requiring assistance completed. Patient did not have IV access vc during this emergency room visit. Administered Medications: No medications were administered Outcome: 15:43 Discharge ordered by MD. kb 15:57 Discharged to home ambulatory. vc 15:57 Condition: good 15:57 Discharge instructions given to patient, Instructed on discharge instructions, follow up and referral plans. no drinking with medication, no driving heavy equipment, medication usage, Demonstrated understanding of instructions, follow-up care, medications, Prescriptions given X 2. 15:58 Patient left the ED. vc Signatures: Dispatcher [employer] EDMS Kira Rogers FNP-C FNP-Ckb Leal, Jahala, RN RN jl Carli Stephenson, RN RN Escobar Murphy [facility]
--- NOTE | 2020-03-24 15:44 | EDPHYS ---
Physician Documentation [facility] Name: Marily Parks Age: 49 yrs Sex: Female : 1970 Arrival Date: 03/24/2020 Time: 12:16 Bed 27 Private MD: ED Physician Qamar Gregorio HPI: 03/24 15:52 This 49 yrs old Black Female presents to ER via Ambulatory with complaints of Shoulder kb Pain, LEFT SIDE (BODY) PAIN EXTENDING FROM THE BACK AND DOWN THE LEG. 15:52 The patient presents with pain that is acute, with no known mechanism of injury. kb 15:54 The symptoms are located in the low back area and left flank. Onset: The kb symptoms/episode began/occurred 1 week(s) ago. The pain does not radiate. Associated signs and symptoms: The patient has no apparent associated signs or symptoms. The problem was sustained without known cause. Modifying factors: The patient symptoms are alleviated by nothing, the patient symptoms are aggravated by any movement. Severity of symptoms: At their worst the symptoms were moderate, in the emergency department the symptoms are unchanged. The patient has not experienced similar symptoms in the past. The patient has not recently seen a physician. 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 - Social history:: Smoking status: Patient reports the use of cigarette tobacco products, smokes one-half pack cigarettes per day. ROS: 15:45 Constitutional: Negative for fever, chills, and weight loss, Cardiovascular: Negative kb for chest pain, palpitations, and edema, Respiratory: Negative for shortness of breath, cough, wheezing, and pleuritic chest pain, Abdomen/GI: Negative for abdominal pain, nausea, vomiting, diarrhea, and constipation, : Negative for injury, bleeding, discharge, and swelling, MS/Extremity: Negative for injury and deformity, Skin: Negative for injury, rash, and discoloration, Neuro: Negative for headache, weakness, numbness, tingling, and seizure. 15:45 Back: Positive for pain at rest, pain with movement, flank pain, on the left. Exam: 15:45 Constitutional: This is a well developed, well nourished patient who is awake, alert, kb and in no acute distress. Head/Face: Normocephalic, atraumatic. Chest/axilla: Normal chest wall appearance and motion. Nontender with no deformity. No lesions are appreciated. Cardiovascular: Regular rate and rhythm with a normal S1 and S2. No gallops, murmurs, or rubs. Normal PMI, no JVD. No pulse deficits. Respiratory: Lungs have equal breath sounds bilaterally, clear to auscultation and percussion. No rales, rhonchi or wheezes noted. No increased work of breathing, no retractions or nasal flaring. Abdomen/GI: Soft, non-tender, with normal bowel sounds. No distension or tympany. No guarding or rebound. No evidence of tenderness throughout. Skin: Warm, dry with normal turgor. Normal color with no rashes, no lesions, and no evidence of cellulitis. MS/ Extremity: Pulses equal, no cyanosis. Neurovascular intact. Full, normal range of motion. Neuro: Awake and alert, GCS 15, oriented to person, place, time, and situation. Cranial nerves II-XII grossly intact. Motor strength 5/5 in all extremities. Sensory grossly intact. Cerebellar exam normal. Normal gait. 15:45 Back: pain, that is moderate, of the low back area and left flank, ROM is normal, normal spinal alignment noted, CVA tenderness, that is moderate, is noted on the right, is noted on the left. Vital Signs: 12:52 BP 123 / 74; Pulse 71; Resp 17; Temp 98.8; Pulse Ox 100% ; Weight 83.46 kg; Height 5 jl7 ft. 2 in. (157.48 cm); Pain 10/10; 15:00 BP 106 / 71; Pulse 54; Resp 17; Pulse Ox 100% ; vc 15:48 BP 96 / 69; Pulse 59; Resp 17; Pulse Ox 100% on R/A; vc 12:52 Body Mass Index 33.65 (83.46 kg, 157.48 cm) jl7 MDM: 14:17 Patient medically screened. kb 15:38 Data reviewed: vital signs, nurses notes. Data interpreted: Pulse oximetry: on room air kb is 100 %. Interpretation: normal. Counseling: I had a detailed discussion with the patient and/or guardian regarding: the historical points, exam findings, and any diagnostic results supporting the discharge/admit diagnosis, lab results, radiology results, the need for outpatient follow up, a family practitioner, an OB/Gyne specialist, to return to the emergency department if symptoms worsen or persist or if there are any questions or concerns that arise at home. 03/24 15:33 Order name: Urine Dipstick--Ancillary (enter results) bd 03/24 15:33 Order name: Urine --Ancillary (enter results) bd 03/24 14:36 Order name: CT Stone Protocol; Complete Time: 15:16 kb 03/24 14:36 Order name: Urine Dipstick-Ancillary (obtain specimen); Complete Time: 15:02 kb Administered Medications: No medications were administered Disposition: 17:38 Co-signature as Attending Physician, Qamar Gregorio MD. rn Disposition: 03/24/20 15:43 Discharged to Home. Impression: Low back pain. - Condition is Stable. - Discharge Instructions: Back Pain, Adult, [id number]. - Prescriptions for Cyclobenzaprine 10 mg Oral Tablet - take 1 tablet by ORAL route every 8 hours As needed; 21 tablet. Diclofenac Sodium 75 mg Oral Tablet, Delayed Release (E.C.) - take 1 tablet by ORAL route 2 times per day As needed; 30 tablet. - Medication Reconciliation Form, Thank You Letter, Antibiotic Education, Prescription Opioid Use form. - Follow up: Emergency Department; When: As needed; Reason: Worsening of condition. Follow up: Private Physician; When: 2 - 3 days; Reason: Recheck today's complaints, Continuance of care, Re-evaluation by your physician. Signatures: Dispatcher [employer] Kira Dodge, G[employer] MEDICAL SALES ASSOCIATE-Qamar Valentino MD MD rn Leal, Jahala, RN RN jl7 Carli Stephenson RN RN vc Corrections: (The following items were deleted from the chart) 15:58 15:43 03/24/2020 15:43 Discharged to Home. Impression: Low back pain. Condition is vc Stable. Forms are Medication Reconciliation Form, Thank You Letter, Antibiotic Education, Prescription Opioid Use. Follow up: Emergency Department; When: As needed; Reason: Worsening of condition. Follow up: Private Physician; When: 2 - 3 days; Reason: Recheck today's complaints, Continuance of care, Re-evaluation by your physician. kb
[2020-03-24 20:47] LABS: Urine Blood 2+ (NEG); Urine Glucose NEGATIVE (NEG); Urine Protein NEGATIVE (NEG); Urine Specific Gravity >1.030 (1.005-1.030); Urine pH 5.5 (5.0-7.0)
[2020-03-24 21:40] VITALS: TEMP 98.8; O2SAT 100
[2020-03-24 21:42] VITALS: BP 96/69
== END 2020-03-24 15:58 | disposition home or self-care (01) ==
LOC: ER 12:05
DX: M54.5 Low back pain (principal); F17.210 Nicotine dependence, cigarettes, uncomplicated; Z91.09 Other allergy status, other than to drugs and biological substances
CPT/HCPCS: 74176; 76377; 81003; 81025; 99283

== ENCOUNTER 2022-04-01 02:54 | Emergency (ER) | payer OTHER ==
[2022-04-01 03:17] LABS: Absolute Lymphocytes (CBC) 3.2 K/uL (0.7-4.9); Hematocrit 31.1 % (36.0-45.0); Lymphocytes % 41.4 % (15.3-44.8); MCV 94.3 fL (80-100); MPV 7.8 fL (7.6-11.3)
[2022-04-01 03:42] LABS: Potassium 3.9 mmol/L (3.5-5.1); Troponin High Sensitivity 4.9 pg/mL (<58.9)
[2022-04-01] MEDS ORDERED: NA CHLORIDE 0.9% 1,000 ML ONE ×2 (04:14→05:48)
[2022-04-01] MEDS ORDERED: MORPHINE 4 MG/ML SYR ONE (04:14)
[2022-04-01] MEDS ORDERED: ONDANSETRON 4 MG/2 ML VIAL ONE (04:14)
[2022-04-01 04:47] LABS: Protime INR 1.13
[2022-04-01] MEDS ORDERED: DIPHENHYDRAMINE 50 MG/ML VIAL ONE (05:48)
[2022-04-01] MEDS ORDERED: METHYLPREDNISOLONE 125 MG INJ ONE (05:48)
--- NOTE | 2022-04-01 07:18 | RAD REPORT ---
EXAM DESCRIPTION: CT - Head Brain Wo Cont - 04/01/2022 6:33 am CLINICAL HISTORY: Headache COMPARISON: None TECHNIQUE: Computed axial tomography of the head was obtained. IV contrast was not requested. All CT scans are performed using dose optimization technique as appropriate and may include automated exposure control or mA/KV adjustment according to patient size. FINDINGS: An intracranial bleed is not seen . The ventricles are normal in caliber. No extra-axial fluid collection is noted. Cerebellar tonsillar ectopia. Fluid within the sinuses/ mastoids is not seen. IMPRESSION: No acute intracranial abnormality is seen. If patient's symptoms persist MRI of the bra in would be recommended.
--- NOTE | 2022-04-01 07:25 | RAD REPORT ---
EXAM DESCRIPTION: CT - Chest For Pe Angio - 04/01/2022 6:34 am CLINICAL HISTORY: Chest pain COMPARISON: None. TECHNIQUE: Dynamically enhanced axial 3 mm thick images of the chest were obtained during administra tion of <100> mL Isovue 370 IV contrast. Coronal and oblique reconstruction images were generated and reviewed. Exam utilizes a protocol for optimal evaluation of pulmonary arterial tree. Maximum intensity projections 3D imaging was utilized All CT scans are performed using dose optimization technique as appropriate and may include automated exposure control or mA/KV adjustment according to patient size. FINDINGS: A pulmonary embolus is not seen. A thoracic aortic aneurysm is not noted. A pleural effusion is not seen. A pericardial effusion is not seen. A lung consolidation is not present. IMPRESSION: Negative for a pulmonary embolism.
--- NOTE | 2022-04-01 08:05 | ER ---
Nurse's Notes [facility] Name: Marily Parks Age: 51 yrs Sex: Female : 1970 Arrival Date: 04/01/2022 Time: 02:56 Bed 10 Private MD: Diagnosis: Chest pain, unspecified;Dyspnea, unspecified Presentation: 04/01 02:56 Chief complaint: Patient states: "I felt a chest tightness and every time I laid down I tw5 felt like blood was coming up my throat. I actually coughed up some blood.". Coronavirus screen: Vaccine status: Patient reports being unvaccinated. Ebola Screen: Patient negative for fever greater than or equal to 101.5 degrees Fahrenheit, and additional compatible Ebola Virus Disease symptoms Patient denies exposure to infectious person. Patient denies travel to an Ebola-affected area in the 21 days before illness onset. Initial Sepsis Screen: Does the patient meet any 2 criteria? No. Patient's initial sepsis screen is negative. Does the patient have a suspected source of infection? No. Patient's initial sepsis screen is negative. Risk Assessment: Do you want to hurt yourself or someone else? Patient reports no desire to harm self or others. Onset of symptoms was March 31, 2022 at 20:00. 02:56 Method Of Arrival: [facility] tw5 02:56 Acuity: OLEKSANDR 2 tw5 Triage Assessment: 02:58 General: Appears in no apparent distress. uncomfortable, Behavior is appropriate for tw5 age, anxious. Pain: Pain currently is 4 out of 10 on a pain scale. Cardiovascular: Capillary refill < 3 seconds. 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 - Social history:: Smoking status: Patient/guardian denies using tobacco, Stopped _ months ago 8. Screenin:00 Abuse screen: Denies threats or abuse. Denies injuries from another. Nutritional tw5 screening: No deficits noted. Tuberculosis screening: No symptoms or risk factors identified. Fall Risk None identified. Assessment: 03:24 Reassessment: Patient appears in no apparent distress at this time. No changes from tw5 previously documented assessment. Patient and/or family updated on plan of care and expected duration. Pain level reassessed. Pain: Pain does not radiate. Pain began gradually. Neuro: No deficits noted. Cardiovascular: Heart tones S1 S2. 04:20 Reassessment: No changes from previously documented assessment. Patient and/or family tw5 updated on plan of care and expected duration. Pain level reassessed. Patient is alert, oriented x 3, equal unlabored respirations, skin warm/dry/pink. Vital Signs: 02:56 BP 145 / 89; Pulse 63; Resp 18; Temp 98.7; Pulse Ox 100% ; Weight 79.83 kg; Height 5 tw5 ft. 2 in. (157.48 cm); Pain 5/10; 04:20 BP 134 / 80; Pulse 92; Resp 18; Pulse Ox 100% on R/A; tw5 05:20 Pain 0/10; tw5 08:27 BP 126 / 72; Pulse 76; Resp 18; Temp 98.0(O); Pulse Ox 100% ; Pain 0/10; kl 02:56 Body Mass Index 32.19 (79.83 kg, 157.48 cm) tw5 ED Course: 02:56 Patient arrived in ED. tw5 02:58 Triage completed. tw5 02:58 Arm band placed on left wrist. tw5 03:00 No provider procedures requiring assistance completed. Maintain EMS IV. Dressing tw5 intact. Good blood return noted. Site clean \\T\\ dry. Gauge \\T\\ site: 20 RAC. Patient maintains SpO2 saturation greater than 95% on room air. 03:11 Carla Joyner is Primary Nurse. tw5 03:11 Basic Metabolic Panel Sent. tw5 03:11 CBC with Diff Sent. tw5 03:11 Troponin HS Sent. tw5 03:22 Blake Phillips MD is Attending Physician. [facility] 03:24 Patient has correct armband on for positive identification. Placed in gown. Bed in low tw5 position. Call light in reach. socks provided. Client placed on continuous cardiac and pulse oximetry monitoring. NIBP monitoring applied. 03:24 Initial lab(s) drawn, by me, sent to lab. EKG done. tw5 03:59 CPK Sent. mh5 03:59 COVID-19 SARS RT PCR (Document "Date of Onset" if Symptomatic) Sent. 5 04:20 Protime (+inr) Sent. tw5 04:20 Ptt, Activated Sent. tw5 04:24 XRAY Chest (1 view) In Process Unspecified. EDMS 06:35 CT Head Brain wo Cont In Process Unspecified. EDMS 06:36 CT Chest For PE Angio In Process Unspecified. EDMS 07:37 Primary Nurse role handed off by Carla Joyner eb 07:56 Attending Physician role handed off by Blake Phillips MD sd2 07:56 Cassi Whelan MD is Attending Physician. sd2 08:27 IV discontinued, intact, bleeding controlled, No redness/swelling at site. Pressure kl dressing applied. Administered Medications: 04:20 Drug: morphine 4 mg Route: IVP; Infused Over: 4 mins; Site: right antecubital; tw5 05:20 Follow up: Pain 0/10 Adult; Response: No adverse reaction; Pain is decreased; RASS: tw5 Alert and Calm (0) 04:20 Drug: Zofran (Ondansetron) 4 mg Route: IVP; Site: right antecubital; tw5 05:52 Follow up: Response: No adverse reaction tw5 04:20 Drug: NS 0.9% 1000 ml Route: IV; Rate: 1000 ml; Site: right antecubital; tw5 05:51 Follow up: Response: No adverse reaction; IV Status: Completed infusion; IV Intake: tw5 1000ml 05:51 Drug: NS 0.9% 1000 ml Route: IV; Rate: 1000 ml; Site: right antecubital; tw5 05:51 Drug: Benadryl (diphenhydrAMINE) 25 mg Route: IVP; Site: right antecubital; tw5 05:52 Drug: SOLU-Medrol (methylPrednisoLONE) 125 mg Route: IVP; Site: right antecubital; tw5 Medication: 03:24 VIS not applicable for this client. tw5 Intake: 05:51 IV: 1000ml; Total: 1000ml. tw5 Outcome: 08:05 Discharge ordered by . sd2 08:28 Discharged to home ambulatory. 08:28 Condition: improved 08:28 Discharge instructions given to patient, Instructed on discharge instructions, follow up and referral plans. Demonstrated understanding of instructions, follow-up care. 08:28 Patient left the ED. Signatures: Dispatcher [employer] EDShannon Fuentes RN RN kl Martinez, Maria 5 Shayna Uribe Maurice, MD MD mh7 Carla Joyner [facility] Cassi Whelan MD MD sd2 Corrections: (The following items were deleted from the chart) 04:22 03:59 D-DIMER+COAG.LAB.BRZ drawn and sent. [facility]
--- NOTE | 2022-04-01 08:05 | EDPHYS ---
Physician Documentation [facility] Name: Marily Parks Age: 51 yrs Sex: Female : 1970 Arrival Date: 04/01/2022 Time: 02:56 Bed 10 Private MD: ED Physician Cassi Whelan HPI: 04/01 03:57 This 51 yrs old Black Female presents to ER via EMS with complaints of Chest Tightness. [facility] 03:57 The patient or guardian reports chest pain that is located primarily in the anterior mh7 chest wall, bilaterally. Onset: yesterday. The pain does not radiate. Associated signs and symptoms: Pertinent positives: cough, headache, Pertinent negatives: abdominal pain, diaphoresis, dizziness, lower extremity pain, lower extremity swelling, lightheadedness, nausea, near syncope, palpitations, recent travel, shortness of breath, syncope, vomiting. The chest pain is described as tightness. Duration: The patient or guardian reports multiple episodes, that are intermittent, that wax and wane, with no pattern. Modifying factors: The symptoms are alleviated by nothing. the symptoms are aggravated by nothing. Severity of pain: At its worst the pain was moderate yesterday, in the emergency department the pain has improved moderately. 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 - Social history:: Smoking status: Patient/guardian denies using tobacco, Stopped _ months ago 8. ROS: 03:57 Constitutional: Negative for fever, chills, and weight loss, Eyes: Negative for injury, mh7 pain, redness, and discharge, ENT: Negative for injury, pain, and discharge, Neck: Negative for injury, pain, and swelling, Abdomen/GI: Negative for abdominal pain, nausea, vomiting, diarrhea, and constipation, Back: Negative for injury and pain, : Negative for injury, bleeding, discharge, and swelling, MS/Extremity: Negative for injury and deformity, Skin: Negative for injury, rash, and discoloration, Neuro: Negative for headache, weakness, numbness, tingling, and seizure, Psych: Negative for depression, anxiety, suicide ideation, homicidal ideation, and hallucinations, Allergy/Immunology: Negative for hives, rash, and allergies, Endocrine: Negative for neck swelling, polydipsia, polyuria, polyphagia, and marked weight changes, Hematologic/Lymphatic: Negative for swollen nodes, abnormal bleeding, and unusual bruising. Exam: 03:57 Constitutional: This is a well developed, well nourished patient who is awake, alert, mh7 and in no acute distress. Head/Face: Normocephalic, atraumatic. Eyes: Pupils equal round and reactive to light, extra-ocular motions intact. Lids and lashes normal. Conjunctiva and sclera are non-icteric and not injected. Cornea within normal limits. Periorbital areas with no swelling, redness, or edema. Neck: Trachea midline, no thyromegaly or masses palpated, and no cervical lymphadenopathy. Supple, full range of motion without nuchal rigidity, or vertebral point tenderness. No Meningismus. 03:57 Cardiovascular: Regular rate and rhythm with a normal S1 and S2. No gallops, murmurs, or rubs. Normal PMI, no JVD. No pulse deficits. Respiratory: Lungs have equal breath sounds bilaterally, clear to auscultation and percussion. No rales, rhonchi or wheezes noted. No increased work of breathing, no retractions or nasal flaring. Abdomen/GI: Soft, non-tender, with normal bowel sounds. No distension or tympany. No guarding or rebound. No evidence of tenderness throughout. Back: No spinal tenderness. No costovertebral tenderness. Full range of motion. Skin: Warm, dry with normal turgor. Normal color with no rashes, no lesions, and no evidence of cellulitis. MS/ Extremity: Pulses equal, no cyanosis. Neurovascular intact. Full, normal range of motion. Neuro: Awake and alert, GCS 15, oriented to person, place, time, and situation. Cranial nerves II-XII grossly intact. Motor strength 5/5 in all extremities. Sensory grossly intact. Cerebellar exam normal. Normal gait. Psych: Awake, alert, with orientation to person, place and time. Behavior, mood, and affect are within normal limits. 03:57 Chest/axilla: Inspection: normal, Palpation: tenderness, that is moderate, of the anterior aspect of right upper chest and anterior aspect of left upper chest, that totally reproduces the patient's complaints, Axilla: are normal, Lymph nodes: lymphadenopathy is not appreciated. Vital Signs: 02:56 BP 145 / 89; Pulse 63; Resp 18; Temp 98.7; Pulse Ox 100% ; Weight 79.83 kg; Height 5 tw5 ft. 2 in. (157.48 cm); Pain 5/10; 04:20 BP 134 / 80; Pulse 92; Resp 18; Pulse Ox 100% on R/A; tw5 05:20 Pain 0/10; tw5 08:27 BP 126 / 72; Pulse 76; Resp 18; Temp 98.0(O); Pulse Ox 100% ; Pain 0/10; kl 02:56 Body Mass Index 32.19 (79.83 kg, 157.48 cm) tw5 MDM: 07:05 Transition of care: After a detail discussion of the patient's case, care is mh7 transferred to Cassi Whelan MD. 07:58 Patient medically screened. sd2 08:02 ED course: Care of patient transitioned over to myself by Dr. Phillips at 0700. 51 yo F sd2 with a hx of PE presented with CC of CP and SOB and hemoptysis when lying flat. EKG with no acute abnormalities. Pending CTA Chest to rule out PE and CT of head due to headache. Labs and imaging reviewed by myself. Labs grossly WNCL for the patient. CTA negative for PE. CT head negative as well. Pt feeling much improved with no further CP or SOB. Vital signs have remained stable. Pt comfortable with plan for discharge and outpatient follow up and verbalizes understanding of discharge plan and strict return precautions.. 04/01 03:01 Order name: Basic Metabolic Panel; Complete Time: 03:46 tw5 04/01 03:01 Order name: CBC with Diff; Complete Time: 03:46 tw5 04/01 03:01 Order name: Troponin HS; Complete Time: 03:46 tw5 04/01 03:54 Order name: Protime (+inr); Complete Time: 04:58 mh7 04/01 03:54 Order name: Ptt, Activated; Complete Time: 04:58 mh04/01 03:55 Order name: COVID-19 SARS RT PCR (Document "Date of Onset" if Symptomatic); Complete Time: 05:31 04/01 03:01 Order name: XRAY Chest (1 view) 04/01 03:57 Order name: CPK; Complete Time: 04:58 04/01 04:22 Order name: D-Dimer; Complete Time: 04:58 EDMS 04/01 04:59 Order name: CT Chest For PE Angio; Complete Time: 07:56 04/01 05:31 Order name: CT Head Brain wo Cont; Complete Time: 07:56 04/01 03:01 Order name: EKG; Complete Time: 03:02 04/01 03:01 Order name: Cardiac monitoring; Complete Time: 03:24 04/01 03:01 Order name: EKG - Nurse/Tech; Complete Time: 03:11 04/01 03:01 Order name: IV Saline Lock; Complete Time: 03:11 04/01 03:01 Order name: Labs collected and sent; Complete Time: 03:11 04/01 03:01 Order name: O2 Per Protocol; Complete Time: 03:11 04/01 03:01 Order name: O2 Sat Monitoring; Complete Time: 03:11 04/01 04:24 Order name: Labs - recollect needed: blue top, covid; Complete Time: 05:19 mw2 Administered Medications: 04:20 Drug: morphine 4 mg Route: IVP; Infused Over: 4 mins; Site: right antecubital; 5 05:20 Follow up: Pain 0/10 Adult; Response: No adverse reaction; Pain is decreased; RASS: tw5 Alert and Calm (0) 04:20 Drug: Zofran (Ondansetron) 4 mg Route: IVP; Site: right antecubital; tw5 05:52 Follow up: Response: No adverse reaction tw5 04:20 Drug: NS 0.9% 1000 ml Route: IV; Rate: 1000 ml; Site: right antecubital; tw5 05:51 Follow up: Response: No adverse reaction; IV Status: Completed infusion; IV Intake: tw5 1000ml 05:51 Drug: NS 0.9% 1000 ml Route: IV; Rate: 1000 ml; Site: right antecubital; tw5 05:51 Drug: Benadryl (diphenhydrAMINE) 25 mg Route: IVP; Site: right antecubital; tw5 05:52 Drug: SOLU-Medrol (methylPrednisoLONE) 125 mg Route: IVP; Site: right antecubital; tw5 Disposition Summary: 04/01/22 08:05 Discharge Ordered Location: Home sd2 Problem: new sd2 Symptoms: are resolved sd2 Condition: Stable sd2 Diagnosis - Chest pain, unspecified sd2 - Dyspnea, unspecified sd2 Followup: sd2 - With: Private Physician - When: 2 - 3 days - Reason: Recheck today's complaints, Continuance of care, Re-evaluation by your physician Followup: sd2 - With: Emergency Department - When: As needed - Reason: Discharge Instructions: - Discharge Summary Sheet sd2 - Nonspecific Chest Pain, Adult sd2 - Shortness of Breath, Adult sd2 Forms: - Medication Reconciliation Form sd2 - Thank You Letter sd2 - Antibiotic Education sd2 - Prescription Opioid Use sd2 Signatures: Dispatcher [employer] [facility] Louie Olsen mw2 Blake Phillips MD MD 7 Carla Joyner tw5 Cassi Whelan MD MD sd2 Corrections: (The following items were deleted from the chart) 04:22 03:58 D-DIMER+COAG.LAB.BRZ ordered. [facility]
[2022-04-01 08:36] VITALS: O2SAT 100
[2022-04-01 08:44] VITALS: BP 126/72; TEMP 98
--- NOTE | 2022-04-01 20:35 | RAD REPORT ---
EXAM DESCRIPTION: RAD - Chest Single View - 04/01/2022 4:21 am CLINICAL HISTORY: The patient is 51 years old and is Female; CHEST PAIN TECHNIQUE: Frontal view of the chest. COMPARISON: No relevant prior studies available. FINDINGS: Lungs: Unremarkable. No consolidation. Pleural space: Unremarkable. No pneumothorax. Heart: Unremarkable. Mediastinum: Unremarkable. Bones/joints: Unremarkable. IMPRESSION: No acute findings in the chest. Electronically signed by: Inderjit Roldan MD 04/01/2022 4:41 AM CDT Due to temporary technical issues with the PACS/Fluency reporting system, reports are being signed by the in house radiologists without review as a courtesy to insure prompt reporting. The interpreting radiologist is fully responsible for the content of the report.
--- NOTE | 2022-04-03 12:27 | EKG ---
Test Date: 2022-04-01 Test Time: 03:16:26 Manager Orange: MEASUREMENT RESULTS: Intervals: Rate: 65 WI: 160 QRSD: 82 QT: 400 QTc: 416 Captiva: P: 11 WI: 160 QRS: 47 T: 16 INTERPRETIVE STATEMENTS: Normal sinus rhythm Nonspecific T wave abnormality Abnormal ECG No previous ECG available for comparison Electronically Signed On 04-03-22 12:23:59 CDT by Shamir Palomino
== END 2022-04-01 08:28 | disposition home or self-care (01) ==
LOC: ER 02:54
DX: R07.89 Other chest pain (principal); R06.00 Dyspnea, unspecified; I10 Essential (primary) hypertension; Z86.718 Personal history of other venous thrombosis and embolism; Z91.048 Other nonmedicinal substance allergy status; Z20.822 Contact with and (suspected) exposure to COVID-19
CPT/HCPCS: 96361; 93005; 85025; 80048; 36415; 82550; 85610; 85379; 85730; 84484; 70450; 71275; 71045; 96375; 96374; 99284; U0003; Q9967; J1200; J7030 ×2; J2930; J2405

== ENCOUNTER 2022-06-01 14:23 | Emergency (ER) | payer OTHER ==
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
[2022-06-01 14:57] LABS: Absolute Lymphocytes (CBC) 2.8 K/uL (0.7-4.9); Lymphocytes % 38.4 % (15.3-44.8); MCV 94.9 fL (80-100); MPV 7.7 fL (7.6-11.3); RBC Red Blood Cell Count 3.58 M/uL (3.86-4.86)
[2022-06-01 15:16] LABS: Potassium 3.9 mmol/L (3.5-5.1); Troponin High Sensitivity 3.8 pg/mL (<58.9)
--- NOTE | 2022-06-01 15:18 | RAD REPORT ---
EXAM DESCRIPTION: RAD - Chest Single View - 06/01/2022 3:01 pm CLINICAL HISTORY: sob, leg swelling, hypertension, history of PE COMPARISON: CT chest April 01, portable chest April 01 TECHNIQUE: AP portable chest image was obtained 06/01/2022 3:01 pm . FINDINGS: No focal lung parenchymal process. No pulmonary edema pattern seen. The interstitial stan ngs match the April 01 examination. Heart and vasculature are normal. No measurable pleural effusion a nd no pneumothorax. No acute bony abnormality seen. No acute aortic findings suspected. IMPRESSION: No acute cardiopulmonary process.
[2022-06-01 16:08] LABS: Urine Blood 2+ (Negative); Urine Glucose Negative (Negative); Urine Protein Negative (Negative); Urine Specific Gravity 1.025 (1.005-1.030)
--- NOTE | 2022-06-01 16:19 | RAD REPORT ---
EXAM DESCRIPTION: US - Extrem Venous W Compress Philipp - 06/01/2022 3:58 pm CLINICAL HISTORY: leg swelling COMPARISON: None. TECHNIQUE: Real-time sonographic evaluation of the bilateral lower extremity common femoral, superfi cial femoral, popliteal and posterior tibial veins was performed. FINDINGS: Normal compressibility, flow augmentation, phasic flow and spontaneous flow are identified in the left and right lower extremity common femoral, superficial femoral, popliteal and posterior t ibial veins. No intraluminal filling defects seen. IMPRESSION: No DVT in either lower extremity.
--- NOTE | 2022-06-01 16:30 | ER ---
Nurse's Notes [facility] Name: Marily Parks Age: 51 yrs Sex: Female : 1970 Arrival Date: 06/01/2022 Time: 14:24 Bed 8 Private MD: Diagnosis: Pain in right lower leg Presentation: 06/01 14:34 Chief complaint: Patient states: swelling to right leg on and off for a couple months, jh5 hurts to stand longer than 30 minutes. Coronavirus screen: Vaccine status: Patient reports receiving the 2nd dose of the covid vaccine. Client denies travel out of the [place] in the last 14 days. Ebola Screen: Patient negative for fever greater than or equal to 101.5 degrees Fahrenheit, and additional compatible Ebola Virus Disease symptoms Patient denies exposure to infectious person. Patient denies travel to an Ebola-affected area in the 21 days before illness onset. Initial Sepsis Screen: Does the patient meet any 2 criteria? No. Patient's initial sepsis screen is negative. Does the patient have a suspected source of infection? No. Patient's initial sepsis screen is negative. Risk Assessment: Do you want to hurt yourself or someone else? Patient reports no desire to harm self or others. Onset of symptoms was March 2022. 14:34 Method Of Arrival: Ambulatory [facility] 14:34 Acuity: OLEKSANDR 3 5 Triage Assessment: 14:35 General: Appears in no apparent distress. uncomfortable, obese, well groomed, Behavior [facility] is calm, cooperative, appropriate for age. Pain: Complains of pain in right leg. 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 - Social history:: Smoking status: Patient reports the use of cigarette tobacco products, smokes one-half pack cigarettes per day. Screenin:52 Abuse screen: Denies threats or abuse. Nutritional screening: No deficits noted. kr3 Tuberculosis screening: No symptoms or risk factors identified. Fall Risk IV access (20 points). Total Monroy Fall Scale indicates No Risk (0-24 pts). Assessment: 15:00 Reassessment: No changes from previously documented assessment. Patient and/or family ll1 updated on plan of care and expected duration. Pain level reassessed. 16:00 Reassessment: No changes from previously documented assessment. Patient and/or family ll1 updated on plan of care and expected duration. Pain level reassessed. Patient is alert, oriented x 3, equal unlabored respirations, skin warm/dry/pink. 16:50 Reassessment: No changes from previously documented assessment. Patient and/or family kr3 updated on plan of care and expected duration. Pain level reassessed. Vital Signs: 14:34 Resp 18; Temp 98.6; Pulse Ox 100% ; Weight 80.74 kg; Height 5 ft. 2 in. (157.48 cm); jh5 Pain 8/10; 16:51 BP 140 / 90; Pulse 61; Resp 18; Pulse Ox 100% on R/A; kr3 14:34 Body Mass Index 32.56 (80.74 kg, 157.48 cm) 5 ED Course: 14:24 Patient arrived in ED. rg4 14:27 Eben Troy PA is PHCP. jmm 14:28 Andrew Whitfield MD is Attending Physician. jmm 14:28 Arm band placed on Patient placed in an exam room, on a stretcher. kr3 14:35 Triage completed. 5 14:37 Symone Bonilla, RN is Primary Nurse. kr3 14:53 Inserted saline lock: 20 gauge in right antecubital area, using aseptic technique. ll1 Blood collected. 15:03 XRAY Chest (1 view) In Process Unspecified. EDMS 15:59 US Extremity Venous W Compression Philipp In Process Unspecified. EDMS 16:01 EKG done, by ED staff, reviewed by Eben BANKS. kr3 16:29 Sj Yin MD is Referral Physician. jmm 16:57 Bed in low position. Call light in reach. Side rails up X 1. kr3 16:57 IV discontinued, intact, bleeding controlled, No redness/swelling at site. Pressure kr3 dressing applied. 16:57 No provider procedures requiring assistance completed. kr3 Administered Medications: No medications were administered Medication: 16:57 VIS not applicable for this client. kr3 Outcome: 16:29 Discharge ordered by . jmm 16:57 Discharged to home ambulatory. kr3 16:57 Condition: stable 16:57 Discharge instructions given to patient, Instructed on discharge instructions, follow up and referral plans. medication usage, Demonstrated understanding of instructions, follow-up care, medications, Prescriptions given X 1. 16:58 Patient left the ED. kr3 Signatures: Dispatcher [employer] EDMS Eben Troy PA PA jmm Garcia, Rubi rg4 Kobi Li RN RN ll1 Myrna Contreras RN RN jh5 Symone Bonilla RN RN kr3
--- NOTE | 2022-06-01 16:30 | EDPHYS ---
Physician Documentation [facility] Name: Marily Parks Age: 51 yrs Sex: Female : 1970 Arrival Date: 06/01/2022 Time: 14:24 Bed 8 Private MD: ED Physician Andrew Whitfield HPI: 06/01 14:36 This 51 yrs old Black Female presents to ER via Ambulatory with complaints of Leg jmm Swelling. 14:36 The patient presents with pain. Onset: The symptoms/episode began/occurred gradually, 3 jmm month(s) ago. Modifying factors:. This is a 51 year old female with a history of PE, HTN, that presents to the ED with complaints of ongoing swelling to mainly her right leg. Patient states she will occasionally develop swelling on her left leg. States her pcp has prescribed gabapentin with no relief. Denies chest pain or shortness of breath. . 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 - Social history:: Smoking status: Patient reports the use of cigarette tobacco products, smokes one-half pack cigarettes per day. ROS: 14:36 Constitutional: Negative for fever, chills, and weight loss, Cardiovascular: Negative jmm for chest pain, palpitations, and edema, Respiratory: Negative for shortness of breath, cough, wheezing, and pleuritic chest pain. 14:36 MS/extremity: Positive for pain, swelling. 14:36 All other systems are negative. Exam: 14:36 Constitutional: This is a well developed, well nourished patient who is awake, alert, jmm and in no acute distress. Head/Face: atraumatic. Eyes: EOMI, no conjunctival erythema appreciated ENT: Moist Mucus Membranes Neck: Trachea midline, Supple Chest/axilla: Normal chest wall appearance and motion. Cardiovascular: Regular rate and rhythm. No edema appreciated Respiratory: Normal respirations, no respiratory distress appreciated Abdomen/GI: Non distended Back: Normal ROM Skin: General appearance color normal 14:36 Musculoskeletal/extremity: mild right posterior thigh pain, no pitting edema appreciated to the right and left leg. 14:36 Skin: Appearance: Color: normal in color. 14:36 Neuro: Motor: is normal. Vital Signs: 14:34 Resp 18; Temp 98.6; Pulse Ox 100% ; Weight 80.74 kg; Height 5 ft. 2 in. (157.48 cm); 5 Pain 8/10; 16:51 BP 140 / 90; Pulse 61; Resp 18; Pulse Ox 100% on R/A; kr3 14:34 Body Mass Index 32.56 (80.74 kg, 157.48 cm) 5 MDM: 14:36 Patient medically screened. [facility] 16:29 Data reviewed: vital signs, nurses notes. Counseling: I had a detailed discussion with [facility] the patient and/or guardian regarding: the historical points, exam findings, and any diagnostic results supporting the discharge/admit diagnosis, lab results, radiology results, the need for outpatient follow up, to return to the emergency department if symptoms worsen or persist or if there are any questions or concerns that arise at home. 06/01 14:37 Order name: Basic Metabolic Panel; Complete Time: 15:22 [facility] 06/01 14:37 Order name: CBC with Diff; Complete Time: 15:06 [facility] 06/01 14:37 Order name: Troponin HS; Complete Time: 15:22 [facility] 06/01 14:37 Order name: XRAY Chest (1 view); Complete Time: 15:22 [facility] 06/01 14:37 Order name: US Extremity Venous W Compression Philipp; Complete Time: 16:23 [facility] 06/01 16:08 Order name: Urine Dipstick-Ancillary; Complete Time: 16:11 [facility] 06/01 14:37 Order name: EKG; Complete Time: 14:37 [facility] 06/01 14:37 Order name: Cardiac monitoring; Complete Time: 16:00 [facility] 06/01 14:37 Order name: EKG - Nurse/Tech; Complete Time: 16:00 [facility] 06/01 14:37 Order name: IV Saline Lock; Complete Time: 14:53 [facility] 06/01 14:37 Order name: Labs collected and sent; Complete Time: 14:53 [facility] 06/01 14:37 Order name: O2 Per Protocol; Complete Time: 16:00 [facility] 06/01 14:37 Order name: O2 Sat Monitoring; Complete Time: 16:00 jmm Administered Medications: No medications were administered Disposition: 18:30 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 I agree with assessment jr11 and care plan and confirm the diagnosis (es) above. Attestation: The patient's history, exam findings, diagnostics, and a summary of any interventions or procedures was reviewed in detail with Andrew Whitfield MD. Disposition Summary: 06/01/22 16:29 Discharge Ordered Location: Home [facility] Condition: Stable jm Diagnosis - Pain in right lower leg [facility] Followup: [facility] - With: Sj Yin MD - When: 2 - 3 days - Reason: Recheck today's complaints, Continuance of care, Re-evaluation by your physician Discharge Instructions: - Discharge Summary Sheet [facility] - Musculoskeletal Pain [facility] Forms: - Medication Reconciliation Form [facility] - Thank You Letter [facility] - Antibiotic Education [facility] - Prescription Opioid Use [facility] Prescriptions: - orphenadrine citrate 100 mg Oral Tablet Sustained Release - take 1 tablet by ORAL route 2 times per day As needed; 20 tablet; Refills: 0, [facility] Product Selection Permitted Signatures: Dispatcher [employer] EDMS Eben Troy PA PA jmm Rees, Jessica, RN RN jh5 Andrew Whitfield MD MD jr11
--- NOTE | 2022-06-02 06:24 | EKG ---
Test Date: 2022-06-01 Test Time: 15:56:00 Medical Collections: JENNIFER MEASUREMENT RESULTS: Intervals: Rate: 62 NE: 174 QRSD: 82 QT: 412 QTc: 418 [place]: P: 47 NE: 174 QRS: 71 T: 30 INTERPRETIVE STATEMENTS: Normal sinus rhythm Normal ECG Compared to ECG 04/01/2022 03:16:26 T-wave abnormality no longer present Electronically Signed On 06-02-22 06:24:02 CDT by Chuy Lazar
[2022-06-02 19:55] VITALS: TEMP 98.6; O2SAT 100
[2022-06-02 20:01] VITALS: BP 140/90
== END 2022-06-01 16:58 | disposition home or self-care (01) ==
LOC: ER 14:23
DX: M79.661 Pain in right lower leg (principal); Z86.718 Personal history of other venous thrombosis and embolism; I10 Essential (primary) hypertension; Z72.0 Tobacco use; Z86.711 Personal history of pulmonary embolism
CPT/HCPCS: 36415; 71045; 80048; 81003; 84484; 85025; 93005; 93970; 99284

== ENCOUNTER 2023-11-11 07:19 | Observation (INO) | payer OTHER ==
[2023-11-11] MEDS ORDERED: ASPIRIN 81 MG CHEWABLE TABLET ONE (07:59)
[2023-11-11] MEDS ORDERED: AMLODIPINE 10 MG TAB ONE (08:00)
[2023-11-11] MEDS ORDERED: NA CHLORIDE 0.9% 500 ML ONE (08:00)
[2023-11-11 08:06] LABS: Absolute Eosinophils 0.1 K/uL (0-0.5); Absolute Lymphocytes (CBC) 2.9 K/uL (0.7-4.9); Basophils % 0.6 % (0-1.3); Eosinophils % 1.4 % (0-4.4); Hematocrit 32.8 % (36.0-45.0); Lymphocytes % 46.5 % (15.3-44.8); MCV 94.7 fL (80-100); MPV 7.5 fL (7.6-11.3); Platelets 255 thou/uL (152-406); RBC Red Blood Cell Count 3.46 M/uL (3.86-4.86)
[2023-11-11 08:11] LABS: Protime INR 1.14
--- NOTE | 2023-11-11 08:25 | ER ---
Nurse's Notes [facility] Name: Marily Parks Age: 53 yrs Sex: Female : 1970 Arrival Date: 11/11/2023 Time: 07:19 Bed 5 Private MD: NICK MAST Diagnosis: Essential (primary) hypertension;Chest pain, unspecified;Anxiety disorder, unspecified Presentation: 11/10 07:39 Chief complaint: Chest tightness and SOB upon waking today. Coronavirus screen: At this hb time, the client does not indicate any symptoms associated with coronavirus-19. Ebola Screen: No symptoms or risks identified at this time. Initial Sepsis Screen: Does the patient meet any 2 criteria? No. Patient's initial sepsis screen is negative. Does the patient have a suspected source of infection? No. Patient's initial sepsis screen is negative. Risk Assessment: Do you want to hurt yourself or someone else? Patient reports no desire to harm self or others. Onset of symptoms was November 11, 2023. 07:39 Method Of Arrival: Ambulatory hb 07:39 Acuity: OLEKSANDR 3 hb Triage Assessment: 07:40 General: Appears in no apparent distress. Behavior is cooperative, anxious. Pain: Pain hb currently is 5 out of 10 on a pain scale. Neuro: Level of Consciousness is awake, alert, obeys commands, Oriented to person, place, time, situation. Cardiovascular: Reports chest tightness Patient's skin is warm and dry. Respiratory: Reports shortness of breath at rest Respiratory effort is even, unlabored, Respiratory pattern is regular, symmetrical, Onset: The symptoms/episode began/occurred today, the patient has moderate shortness of breath. 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 - Social history:: Smoking status: Patient/guardian denies using tobacco, the patient reports quitting approximately 4 years ago. Screenin:43 [facility] ED Fall Risk Assessment (Adult) History of falling in the last 3 months, hb including since admission No falls in past 3 months (0 pts) Confusion or Disorientation No (0 pts) Intoxicated or Sedated No (0 pts) Impaired Gait No (0 pts) Mobility Assist Device Used No (0 pt) Altered Elimination No (0 pt) Score/Fall Risk Level 0 - 2 = Low Risk Oriented to surroundings, Maintained a safe environment, Educated pt \T\ family on fall prevention, incl call for assistance when getting out of bed. Abuse screen: Denies threats or abuse. Denies injuries from another. Nutritional screening: No deficits noted. Tuberculosis screening: No symptoms or risk factors identified. Assessment: 07:55 General: Appears in no apparent distress. Behavior is anxious. Pain: Complains of pain ko1 in chest. Neuro: No deficits noted. Cardiovascular: Reports chest pain, shortness of breath, Rhythm is sinus bradycardia. Respiratory: Reports cough that is non-productive, dry, persistent Airway is patent Breath sounds are clear bilaterally. GI: No deficits noted. : No deficits noted. EENT: No deficits noted. Derm: No deficits noted. Musculoskeletal: No deficits noted. Vital Signs: 07:39 BP 166 / 109; Pulse 68; Resp 17; Temp 98.1(O); Pulse Ox 100% on R/A; Weight 79.83 kg; hb Height 5 ft. 2 in. ; Pain 5/10; 08:05 BP 170 / 100; Pulse 51; Resp 15; Pulse Ox 100% ; ko1 08:46 BP 154 / 106; Pulse 63; Resp 15; Pulse Ox 100% ; ko1 08:54 BP 163 / 85; Pulse 56; Resp 15; Pulse Ox 99% on R/A; ko1 07:39 Body Mass Index 32.19 (79.83 kg, 157.48 cm) hb 07:39 Pain Scale: Adult hb ED Course: 07:24 Patient arrived in ED. rg4 07:24 NICK MAST is Private Physician. rg4 07:25 Papi Pro MD is Attending Physician. danie 07:30 Nitish Briscoe, RN is Primary Nurse. bp 07:40 Triage completed. hb 07:40 Arm band placed on. hb 07:42 Client placed on continuous cardiac and pulse oximetry monitoring. NIBP monitoring hb applied. cardiac monitor on. Pulse ox on. NIBP on. Warm blanket given. 07:42 EKG done, by ED staff, reviewed by Papi Pro MD. hb 07:43 Patient has correct armband on for positive identification. Placed in gown. Bed in low hb position. Call light in reach. Side rails up X 1. Provided Education on: tests, result times. 07:55 No provider procedures requiring assistance completed. Inserted saline lock: 20 gauge ko1 in right antecubital area, using aseptic technique. Blood collected. 07:55 Initial lab(s) drawn, by me, sent to lab. ko1 07:58 Basic Metabolic Panel Sent. ko1 07:58 CBC with Diff Sent. ko1 07:58 LFT's Sent. ko1 07:58 Magnesium Sent. ko1 07:58 NT PRO-BNP Sent. ko1 07:58 PT-INR Sent. ko1 07:58 Troponin HS Sent. ko1 07:58 D-Dimer Sent. ko1 07:58 Lipase Sent. ko1 08:04 US Extremity Venous W Compression Phliipp Sent. bp 08:23 Priyanka Hickman, RN is Primary Nurse. ko1 08:23 Renny Adler MD is Hospitalizing Provider. danie 08:23 Willard Adler MD is Hospitalizing Provider. danie 08:42 XRAY Chest (1 view) In Process Unspecified. EDMS 08:47 Door closed. Noise minimized. Lights dimmed. Warm blanket given. Verbal reassurance ko1 given. 08:49 US Extremity Venous W Compression Philipp In Process Unspecified. EDMS 20:54 Patient admitted, IV remains in place. as6 Administered Medications: 08:11 Drug: Norvasc PO 10 mg PO once Route: PO; ko1 08:54 Follow up: Response: No adverse reaction; Blood pressure is lowered ko1 08:11 Drug: NS 0.9% IV 500 ml IV at bolus once Route: IV; Rate: bolus; Site: right ko1 antecubital; 08:55 Follow up: Response: No adverse reaction; IV Status: Completed infusion; IV Intake: ko1 500ml 08:12 Drug: Aspirin PO Chewable Tablet 81 mg PO once Route: PO; ko1 08:55 Follow up: Response: No adverse reaction ko1 08:29 Drug: Enoxaparin Sub-Q 80 mg Sub-Q once Route: Sub-Q; Site: abdomen; ko1 08:54 Follow up: Response: No adverse reaction ko1 Medication: 07:43 VIS not applicable for this client. hb Intake: 08:55 IV: 500ml; Total: 500ml. ko1 Outcome: 08:24 Decision to Hospitalize by Provider. danie 20:54 Condition: stable as6 20:54 Instructed on the need for admit, 21:25 Admitted to Med/surg accompanied by tech, via wheelchair, room 220, jw7 22:13 Patient left the ED. as6 Signatures: Dispatcher [employer] EDMS Papi Pro MD MD cha Baxter, Heather, RN RN Nette Mackenzie rg4 Nitish Briscoe, RN RN Fritz Christensen, RN RN as6 Demi Morales RN RN jw7 Priyanka Hickman, RN RN ko1
--- NOTE | 2023-11-11 08:26 | EDPHYS ---
Physician Documentation [facility] Name: Marily Parks Age: 53 yrs Sex: Female : 1970 Arrival Date: 11/11/2023 Time: 07:19 Bed 5 Private MD: NICK MAST ED Physician Papi Pro HPI: 11/10 08:16 This 53 yrs old Black Female presents to ER via Ambulatory with complaints of Shortness danie Of Breath, Chest Tightness. 08:16 The patient has shortness of breath at rest, with light activity. Onset: The danie symptoms/episode began/occurred 1 day(s) ago. Duration: The symptoms are continuous, and are steadily getting worse. The patient's shortness of breath has no apparent modifying factors. Associated signs and symptoms: Pertinent positives: chest pain, non-productive cough. Severity of symptoms: At their worst the symptoms were moderate in the emergency department the symptoms are unchanged. The patient has not experienced similar symptoms in the past. 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 - Social history:: Smoking status: Patient/guardian denies using tobacco, the patient reports quitting approximately 4 years ago. ROS: 08:18 Constitutional: Negative for fever, chills, and weight loss, Eyes: Negative for injury, danie pain, redness, and discharge, ENT: Negative for injury, pain, and discharge, Neck: Negative for injury, pain, and swelling, Abdomen/GI: Negative for abdominal pain, nausea, vomiting, diarrhea, and constipation, Back: Negative for injury and pain, : Negative for injury, bleeding, discharge, and swelling, MS/Extremity: Negative for injury and deformity, Skin: Negative for injury, rash, and discoloration, Neuro: Negative for headache, weakness, numbness, tingling, and seizure, Psych: Negative for depression, anxiety, suicide ideation, homicidal ideation, and hallucinations, Allergy/Immunology: Negative for hives, rash, and allergies, Endocrine: Negative for neck swelling, polydipsia, polyuria, polyphagia, and marked weight changes, Hematologic/Lymphatic: Negative for swollen nodes, abnormal bleeding, and unusual bruising, 08:18 Cardiovascular: Positive for chest pain, 08:18 Respiratory: Positive for shortness of breath, Exam: 08:18 Constitutional: This is a well developed, well nourished patient who is awake, alert, danie and in no acute distress. Head/Face: Normocephalic, atraumatic. Eyes: Pupils equal round and reactive to light, extra-ocular motions intact. Lids and lashes normal. Conjunctiva and sclera are non-icteric and not injected. Cornea within normal limits. Periorbital areas with no swelling, redness, or edema. ENT: Nares patent. No nasal discharge, no septal abnormalities noted. Tympanic membranes are normal and external auditory canals are clear. Oropharynx with no redness, swelling, or masses, exudates, or evidence of obstruction, uvula midline. Mucous membranes moist. Neck: Trachea midline, no thyromegaly or masses palpated, and no cervical lymphadenopathy. Supple, full range of motion without nuchal rigidity, or vertebral point tenderness. No Meningismus. Chest/axilla: Normal chest wall appearance and motion. Nontender with no deformity. No lesions are appreciated. Cardiovascular: Regular rate and rhythm with a normal S1 and S2. No gallops, murmurs, or rubs. Normal PMI, no JVD. No pulse deficits. Respiratory: Lungs have equal breath sounds bilaterally, clear to auscultation and percussion. No rales, rhonchi or wheezes noted. No increased work of breathing, no retractions or nasal flaring. Abdomen/GI: Soft, non-tender, with normal bowel sounds. No distension or tympany. No guarding or rebound. No evidence of tenderness throughout. Back: No spinal tenderness. No costovertebral tenderness. Full range of motion. Skin: Warm, dry with normal turgor. Normal color with no rashes, no lesions, and no evidence of cellulitis. MS/ Extremity: Pulses equal, no cyanosis. Neurovascular intact. Full, normal range of motion. Neuro: Awake and alert, GCS 15, oriented to person, place, time, and situation. Cranial nerves II-XII grossly intact. Motor strength 5/5 in all extremities. Sensory grossly intact. Cerebellar exam normal. Normal gait. Psych: Awake, alert, with orientation to person, place and time. Behavior, mood, and affect are within normal limits. 08:18 ECG was reviewed by the Attending Physician. Vital Signs: 07:39 BP 166 / 109; Pulse 68; Resp 17; Temp 98.1(O); Pulse Ox 100% on R/A; Weight 79.83 kg; hb Height 5 ft. 2 in. ; Pain 5/10; 08:05 BP 170 / 100; Pulse 51; Resp 15; Pulse Ox 100% ; ko1 08:46 BP 154 / 106; Pulse 63; Resp 15; Pulse Ox 100% ; ko1 08:54 BP 163 / 85; Pulse 56; Resp 15; Pulse Ox 99% on R/A; ko1 07:39 Body Mass Index 32.19 (79.83 kg, 157.48 cm) hb 07:39 Pain Scale: Adult hb MDM: 07:25 Patient medically screened. danie 08:21 Differential diagnosis: Anxiety Reaction asthma, Bronchitis CHF exacerbation, abnormal danie EKG, acute myocardial infarction, acute pericarditis, anxiety, coronary artery disease Cholelithiasis esophagitis, gastritis, hiatal hernia, pancreatitis, pericarditis, pneumonia, pneumothorax, pulmonary embolus, stable angina, thoracic aortic disection, unstable angina, Myocardial Infarction pneumonia, Pneumothorax pulmonary edema, Pulmonary Embolism reactive airway disease, Unstable Angina. Antibiotic administration: Not indicated. HEART Score: History: Slightly Suspicious (0), ECG: Normal (0), Age: > 45 and < 65 years (1), Risk Factors: > or = 3 Risk factors for atherosclerotic disease (2), [Hypertension] [+ Family HX] [Obesity] Troponin: < or = 1 x Normal Limit (0). The patient was given aspirin in the Emergency Department. TISH Risk Score: 1 - Three or more CAD risk factors, TOTAL SCORE = 1. Immunization status: Influenza vaccine: within last 5 years. Data reviewed: vital signs, nurses notes, lab test result(s), EKG, radiologic studies, plain films. Consideration of Admission/Observation Patient was admitted/placed on observation. Escalation of care including admission/observation considered. I considered the following discharge prescriptions or medication management in the emergency department Medications were administered in the Emergency Department. See NOV. 11/10 07:46 Order name: Basic Metabolic Panel; Complete Time: 08:55 danie 11/10 07:46 Order name: CBC with Diff; Complete Time: 08:13 [facility] 11/10 07:46 Order name: LFT's; Complete Time: 08:55 [facility] 11/10 07:46 Order name: Magnesium; Complete Time: 08:55 [facility] 11/10 07:46 Order name: NT PRO-BNP; Complete Time: 08:55 [facility] 11/10 07:46 Order name: PT-INR; Complete Time: 08:13 [facility] 11/10 07:46 Order name: Troponin HS; Complete Time: 08:55 [facility] 11/10 07:46 Order name: D-Dimer; Complete Time: 08:13 [facility] 11/10 07:46 Order name: Lipase; Complete Time: 08:55 [facility] 11/10 07:46 Order name: XRAY Chest (1 view) 11/10 07:46 Order name: US Extremity Venous W Compression Philipp 11/10 08:16 Order name: VQ scan (Nuclear Medicine) 11/10 07:46 Order name: EKG; Complete Time: 07:47 [facility] 11/10 07:46 Order name: Cardiac monitoring; Complete Time: 07:52 [facility] 11/10 07:46 Order name: EKG - Nurse/Tech; Complete Time: 07:52 [facility] 11/10 07:46 Order name: IV Saline Lock; Complete Time: 07:58 [facility] 11/10 07:46 Order name: Labs collected and sent; Complete Time: 07:58 [facility] 11/10 07:46 Order name: O2 Per Protocol; Complete Time: 07:52 [facility] 11/10 07:46 Order name: O2 Sat Monitoring; Complete Time: 07:52 [facility] EC:18 Rate is 57 beats/min. Rhythm is regular. QRS [place] is Normal. ND interval is normal. QRS danie interval is normal. QT interval is normal. No Q waves. T waves are Normal. No ST changes noted. Clinical impression: Sinus bradycardia and No evidence of ischemia. Interpreted by me. Reviewed by me. Administered Medications: 08:11 Drug: Norvasc PO 10 mg PO once Route: PO; ko1 08:54 Follow up: Response: No adverse reaction; Blood pressure is lowered ko1 08:11 Drug: NS 0.9% IV 500 ml IV at bolus once Route: IV; Rate: bolus; Site: right ko1 antecubital; 08:55 Follow up: Response: No adverse reaction; IV Status: Completed infusion; IV Intake: ko1 500ml 08:12 Drug: Aspirin PO Chewable Tablet 81 mg PO once Route: PO; ko1 08:55 Follow up: Response: No adverse reaction ko1 08:29 Drug: Enoxaparin Sub-Q 80 mg Sub-Q once Route: Sub-Q; Site: abdomen; ko1 08:54 Follow up: Response: No adverse reaction ko1 Disposition Summary: 11/11/23 08:24 Hospitalization Ordered Notes: Hospitalization Status: Observation danie Provider: Willard Adler cha Condition: Stable danie Problem: new danie Symptoms: have improved danie Bed/Room Type: Standard danie Location: Telemetry/MedSurg (observation)(11/11/23 20:04) rv1 Room Assignment: 220(11/11/23 20:04) rv1 Diagnosis - Essential (primary) hypertension danie - Chest pain, unspecified danie - Anxiety disorder, unspecified danie Forms: - Medication Reconciliation Form danie - SBAR form danie - Leadership Thank You Letter danie Signatures: Dispatcher [employer] EDPapi Aceves MD MD cha Baxter, Heather, RN RN Nitish Muller RN RN bp Clementine Loyd, LEAD JAVA DEVELOPER ARCHITECT LEAD JAVA DEVELOPER ARCHITECT jh7 Priyanka Hickman RN RN ko1 Kim Savage rv1 Corrections: (The following items were deleted from the chart) 10:38 08:24 Telemetry/MedSurg (observation) danie bp 10:38 08:24 danie bp 20:04 10:38 [facility] ER HOLD bp rv1 20:04 10:38 ERHOLD- bp rv1
[2023-11-11] MEDS ORDERED: ENOXAPARIN 80 MG/0.8 ML SQ ONE (08:28)
[2023-11-11 08:29] LABS: Albumin 3.6 g/dL (3.4-5.0); Albumin/Globulin Ratio 0.9 (1.1-1.8); Anion Gap 7.9 mEq/L (5.0-15.0); Bilirubin Direct 0.1 mg/dL (0-0.2); Bilirubin Indirect, Calculated 0.4 mg/dL (0.2-0.8); Bilirubin Total 0.5 mg/dL (0.2-1.0); Globulin 3.8 g/dL (2.3-3.5); Magnesium 1.9 mg/dL (1.6-2.4); Potassium 3.9 mEq/L (3.5-5.1); Protein, Total 7.4 g/dL (6.4-8.2); Troponin High Sensitivity 5.2 pg/mL (<58.9)
[2023-11-11] MEDS ORDERED: ACETAMINOPHEN 500 MG TAB PO PRN (08:54)
[2023-11-11] MEDS ORDERED: ONDANSETRON 4 MG/2 ML VIAL IV PRN (08:54)
--- NOTE | 2023-11-11 08:54 | P.HP ---
Certification for Inpatient Patient admitted to: Observation With expected LOS: <2 Midnights Practitioner: I am a practitioner with admitting privileges, knowledge of patient current condition, hospital course, and medical plan of care. Services: Services provided to patient in accordance with Admission requirements found in Title 42 Section 412.3 of the Code of Federal Regulations Patient History Date of Service: 11/11/23 Reason for admission: chest pain History of Present Illness: 53 year old female with past medical history of asthma, DVT; Hypertension; Pulmonary Embolism;presents for chest pain, shortness of breath. She reports shortness of breath worse started this morming, reports shortness of breath with activity. She reports symptoms getting progressively worse. she reportes seeing Dr Chaudhry for pulmonary, she has inhaler, but is not using, she reports prior PE 2008, she reports using lovenox for 2 years. reports being on lisinopri. was stopped due to cough. Plan to admit for Essential (primary) hypertension,uncontrolled, Chest pain, unspecified, Anxiety disorder, unspecified, uncontrolled, elevated d dimer. Laboratory evaluation elevated d dimer 1007, normocytic anemia 11.2, 32.8, pending chest x ray report., EKG Rate is 57 beats/min. Rhythm is regular. QRS [place] is Normal. RI interval is normal. QRS interval is normal. QT interval is normal. No Q waves. T waves are Normal. No ST changes noted. Clinical impression: Sinus bradycardia and No evidence of ischemia. Allergies iodine Allergy (Unknown, Unverified 11/11/23 09:15) UNKNOWN - Past Medical/Surgical History -: Essential hypertension -: anxiety -: Pulmonary embolism -: asthma -: hysterectomy -: tubal Psychosocial/ Personal History: lives with son, former smoker, - Social History Smoking Status: Former smoker Smoking therapy provided: No Alcohol use: No CD- Drugs: No Caffeine use: No Place of Residence: Home Review of Systems Unremarkable (per HPI) Physical Examination - Physical Exam General: Alert, In no apparent distress, Oriented x3, Other (tearful) HEENT: Atraumatic, Normocephalic Neck: 2+ carotid pulse no bruit, JVD not distended Respiratory: Normal air movement, Diminished Cardiovascular: Normal pulses, Regular rate/rhythm Capillary refill: <2 Seconds Gastrointestinal: Normal bowel sounds, Soft and benign Musculoskeletal: No clubbing, No swelling Integumentary: No breakdown, No significant lesion Neurological: Normal speech, Normal strength at 5/5 x4 extr - Studies Laboratory Data (last 24 hrs) 11/11/23 11/11/23 11/11/23 07:55 07:55 07:55 WBC 6.20 Hgb 11.2 L Hct 32.8 L Plt Count 255 PT 12.5 INR 1.14 Sodium 139 Potassium 3.9 BUN 16 Creatinine 1.02 Glucose 96 Magnesium 1.9 Total Bilirubin 0.5 AST 19 ALT 31 Alkaline Phosphatase 63 Lipase 20 Assessment and Plan - Plan assessment/plan asthma uncontrolled, acute dyspnea-acute chest pain-acute elevated d dimer-acute VQ scan ordered, lovenox 1 mg/kg pulmonary consulted telemetry, prn analgesics Laboratory evaluation elevated d dimer 1007, pending chest x ray report., EKG Rate is 57 beats/min. Rhythm is regular. QRS [place] is Normal. RI interval is normal. QRS interval is normal. QT interval is normal. No Q waves. T waves are Normal. No ST changes noted. Clinical impression: Sinus bradycardia and No evidence of ischemia. Essential (primary) hypertension-uncontrolled Anxiety disorder, unspecified-uncontrolled resume home meds normocytic anemia HH 11.2, 32.8, hx pe 2008 was on lovenox for 2 yrs after pe Full code DVT Lovenox 1 mg/kg Diet cardiac Discharge Plan: Home - Advance Directives Does patient have a Living Will: No Does patient have a Durable POA for Healthcare: No - Code Status/Comfort Care Code Status: Full Code Critical Care: No Time Spent Managing Pts Care (In Minutes): 55
--- NOTE | 2023-11-11 09:22 | RAD REPORT ---
EXAM DESCRIPTION: US - Extrem Venous W Compress Philipp - 11/11/2023 8:47 am CLINICAL HISTORY: PAIN COMPARISON: Extrem Venous W Compress Philipp dated 06/01/2022 TECHNIQUE: Real-time sonographic evaluation of the lower extremity deep venous systems was performed using color Doppler, grayscale, and compression. FINDINGS: Bilateral lower extremities. Normal compressibility, flow augmentation, phasic flow and spontaneous flow is identified in both the left and right lower extremity deep venous systems. No intraluminal filling defects seen. IMPRESSION: No DVT in either lower extremity.
--- NOTE | 2023-11-11 09:24 | RAD REPORT ---
EXAM DESCRIPTION: RAD - Chest Single View - 11/11/2023 8:40 am CLINICAL HISTORY: CHEST PAIN COMPARISON: Chest Single View dated 06/01/2022; Chest Single View dated 04/01/2022; Chest Pa And Lat ( 2 Views) dated 07/28/2018 FINDINGS: Lines: None. Lungs: No evidence of edema or pneumonia. Pleural: No significant pleural effusions or pneumothorax. Cardiac: The heart size is within normal limits. Mediastinum: Within normal limits. Bones: No acute fractures. Other: None IMPRESSION: No acute cardiopulmonary disease.
[2023-11-11] MEDS ORDERED: ALBUTEROL 2.5 MG/3 ML NEB SOL NEB PRN (10:13)
[2023-11-11] MEDS: dexAMETHasone 4 MG TAB PO SCH (10:30)
[2023-11-11] MEDS: carvediloL 25 MG TAB PO SCH (10:30)
[2023-11-11] MEDS ORDERED: dexAMETHasone 4 MG TAB ONE (10:42)
[2023-11-11] MEDS ORDERED: LORAZEPAM 0.5 MG TABLET ONE (10:43)
[2023-11-11] MEDS ORDERED: carvediloL 6.25 MG TAB ONE ×2 (10:43→18:17)
[2023-11-11] MEDS: LORAZEPAM 0.5 MG TABLET PO SCH (11:00)
[2023-11-11] MEDS: SERTRALINE HCL 50 MG TAB PO SCH (11:00)
[2023-11-11] MEDS ORDERED: ALBUTEROL 2.5 MG/3 ML NEB SOL ONE ×2 (13:44→19:30)
[2023-11-11] MEDS: ALBUTEROL 2.5 MG/3 ML NEB SOL NEB SCH (14:17)
[2023-11-11] MEDS ORDERED: LORAZEPAM 0.5 MG TABLET PO SCH (21:00)
[2023-11-11 22:29] VITALS: BMI 31.4
[2023-11-11] MEDS: ENOXAPARIN 80 MG/0.8 ML SQ SCH (22:39)
[2023-11-12 06:49] LABS: Absolute Lymphocytes (CBC) 1.4 K/uL (0.7-4.9); Basophils % 0.4 % (0-1.3); Hematocrit 34.9 % (36.0-45.0); Lymphocytes % 19.6 % (15.3-44.8); MCV 94.9 fL (80-100); MPV 7.8 fL (7.6-11.3); Platelets 292 thou/uL (152-406); RBC Red Blood Cell Count 3.67 M/uL (3.86-4.86)
[2023-11-12 07:07] LABS: Anion Gap 6.9 mEq/L (5.0-15.0); Potassium 3.9 mEq/L (3.5-5.1)
--- NOTE | 2023-11-12 07:39 | RAD REPORT ---
EXAM DESCRIPTION: NM - Vent Perfusion VQ Scan - 11/12/2023 7:19 am CLINICAL HISTORY: Chest pain;Dyspnea COMPARISON: No comparisons TECHNIQUE: 17.8mCi Xe-133 gas inhaled and 6.4mCi Tc-MAA IV. Planar ventilation scan was performed in posterior projection after Xe-133 gas inhalation (wash-in, e quilibrium, and wash-out phases) followed by perfusion scan with Tc-MAA IV in multiple projections. Examination is correlated with recent chest radiograph. FINDINGS: Normal ventilation with appropriate wash-out and no significant air-trapping. No mismatched segmental perfusion defect. IMPRESSION: Very low probability of acute pulmonary embolism.
[2023-11-12] MEDS ORDERED: SERTRALINE HCL 50 MG TAB PO SCH (09:00)
--- NOTE | 2023-11-12 09:19 | P.DS ---
Admission Date: 11/11/23 Discharge Date: 11/12/23 Primary Care Provider: Krissy Rivas Disposition: ROUTINE DISCHARGE Discharge Condition: GOOD Reason for Admission: chest pain Brief History of Present Illness: 53 year old female with past medical history of asthma, hypertension, DVT, pulmonary embolism (2008); presents for chest pain, shortness of breath. Reports shortness of breath with activity. She reports symptoms getting progressively worse. Seeing Dr Chaudhry for pulmonary, has inhaler, but is not using it. She reports using lovenox for 2 years. Ms. Parks was on lisinopril but stopped due to cough. Plan to admit for Essential (primary) hypertension, uncontrolled, Chest pain, unspecified, Anxiety disorder, unspecified, uncontrolled, elevated d dimer (1007), normocytic anemia 11.2, 32.8. EKG Rate is 57 beats/min. Rhythm is regular. QRS [place] is Normal. [place] interval is normal. QRS interval is normal. QT interval is normal. No Q waves. T waves are Normal. No ST changes noted. Clinical impression: Sinus bradycardia and No evidence of ischemia. Hospital Course: Ms. Parks did well over the course of admission, she was seen by Dr. Adler. He requests addition of oral prednisone 10mg BID x 1 week on discharge. VQ scan low risk for mismatch. Ms. Parks feeling better and will be discharged to home today to f/u with Dr. Adler and Kailee Rivas, [facility] Vital Signs/Physical Exam: Temp Pulse Resp BP Pulse Ox 97.0 F 59 15 140/83 94 11/12/23 08:00 11/12/23 08:00 11/12/23 08:00 11/12/23 08:00 11/12/23 08:00 General: Alert, In no apparent distress, Oriented x3 HEENT: Atraumatic, Normocephalic, PERRLA Neck: Supple, 2+ carotid pulse no bruit Respiratory: Clear to auscultation bilaterally, Normal air movement Cardiovascular: No edema, Normal pulses, Regular rate/rhythm Capillary refill: <2 Seconds Gastrointestinal: Normal bowel sounds, Soft and benign Musculoskeletal: No clubbing, No swelling Integumentary: No rashes Neurological: Normal gait, Normal speech Lymphatics: No axilla or inguinal lymphadenopathy External genitalia: Deferred Rectal: Deferred Laboratory Data at Discharge: WBC 7.40 thou/uL (4.3-10.9) 11/12/23 06:25 Hgb 11.9 g/dL (12.0-15.0) L 11/12/23 06:25 Hct 34.9 % (36.0-45.0) L 11/12/23 06:25 Plt Count 292 thou/uL (152-406) 11/12/23 06:25 PT 12.5 SECONDS (9.5-12.5) 11/11/23 07:55 INR 1.14 11/11/23 07:55 Sodium 138 mEq/L (136-145) 11/12/23 06:25 Potassium 3.9 mEq/L (3.5-5.1) 11/12/23 06:25 BUN 15 mg/dL (7-18) 11/12/23 06:25 Creatinine 0.85 mg/dL (0.55-1.02) 11/12/23 06:25 Glucose 139 mg/dL (74-106) H 11/12/23 06:25 Magnesium 2.0 mg/dL (1.6-2.4) 11/12/23 06:25 Total Bilirubin 0.5 mg/dL (0.2-1.0) 11/11/23 07:55 AST 19 U/L (15-37) 11/11/23 07:55 ALT 31 U/L (13-56) 11/11/23 07:55 Alkaline Phosphatase 63 U/L (45-117) 11/11/23 07:55 Lipase 20 U/L (13-75) 11/11/23 07:55 Home Medications: Carvedilol [Coreg] 25 mg PO DAILY 11/11/23 Pantoprazole Sodium [Protonix] 40 mg PO DAILY 11/11/23 Sertraline HCl 25 mg PO DAILY 11/11/23 Fluticasone/Umeclidin/Vilanter [Trelegy Ellipta 200-62.5-25] 1 each IH DAILY #1 11/12/23 Prednisone [Estela] 10 mg PO BID #14 11/12/23 New Medications: Prednisone [Estela] 10 mg PO BID #14 Fluticasone/Umeclidin/Vilanter [Trelegy Ellipta 200-62.5-25] 1 each IH DAILY #1 Physician Discharge Instructions: Presented to the ED with SOB, worsened on exertion. Concern to pulmonary embolism as Ms. Parks has had one in the past. VQ scan with low probability of embolism. Ms. Parks has stopped Lisinopril secondary to cough. She is feeling better. Will be discharged to follow up with Sameer Zamudio and Dr. Adler in 1-2 weeks with continuation of Coreg, Trelegy, and will take one week of oral steroids per Dr. Adler's orders. Okay to DC IV and DC home Follow-up with Sameer Ponce in 1 to 2 weeks Follow-up with Dr. Adler in 1 to 2-week Please call the inpatient unit for any questions or concerns regarding hospital stay Return to the ER for worsening symptoms Diet: Low sodium Activity: Ad shabnam Followup: Krissy Rivas NP [Primary Care Provider] -
[2023-11-12 12:43] VITALS: BP 145/89; TEMP 96.9
[2023-11-12 14:27] VITALS: O2SAT 98
== END 2023-11-12 15:43 | disposition home or self-care (01) ==
LOC: ER 07:19 → ERHOLD 08:52 → 2ND 21:44
PROVIDERS: ADMIT Internal Medicine Sleep Medicine; ATTEND Hospitalist
DX: R07.9 Chest pain, unspecified (principal); R00.1 Bradycardia, unspecified; R06.02 Shortness of breath; J45.909 Unspecified asthma, uncomplicated; I10 Essential (primary) hypertension; F41.9 Anxiety disorder, unspecified; D64.9 Anemia, unspecified; Z86.718 Personal history of other venous thrombosis and embolism; Z86.711 Personal history of pulmonary embolism
CPT/HCPCS: 85025 ×2; 80048 ×2; 36415; 83735 ×2; 85610; 85379 ×2; 80076; 84484 ×3; 83690; 83880; 71045; 93970; 78582; J8540 ×3; J7613 ×5; J7040; A9558; A9540; 96360; 96372; 99285; G0378

== ENCOUNTER 2024-08-01 16:47 | Emergency (ER) | payer OTHER ==
--- NOTE | 2024-08-01 17:18 | RAD REPORT ---
EXAM: Chest Single View HISTORY: COUGH COMPARISON: 11/11/2023 FINDINGS: LUNGS/PLEURA: The lungs are clear. No pleural effusions or pneumothorax. No pulmonary edema. MEDIASTINUM: The mediastinal silhouette is within normal limits. CARDIAC: The cardiac silhouette is within normal limits. UPPER ABDOMEN: No significant abnormality. BONES: No acute fracture. LINES/TUBES/OTHER: N/A IMPRESSION: No evidence of acute cardiopulmonary disease.
[2024-08-01 17:30] LABS: Hematocrit 35.9 % (36.0-45.0); Hemoglobin 11.9 g/dL (12.0-15.0); MCH 31.6 pg (27.0-35.0); MCV 95.2 fL (80-100); RBC Red Blood Cell Count 3.77 M/uL (3.86-4.86)
[2024-08-01 17:31] LABS: Absolute Basophils 0.1 K/uL (0-0.5); Absolute Eosinophils 0.1 K/uL (0-0.5); Absolute Lymphocytes (CBC) 3.2 K/uL (0.7-4.9); Absolute Monocytes 0.5 K/uL (0.1-1.3); Absolute Neutrophil 3.2 K/uL (1.8-8.0); Eosinophils % 1.9 % (0-4.4); Lymphocytes % 44.9 % (15.3-44.8); MCHC 33.2 g/dL (32.0-36.0); Monocytes % 6.8 % (3.3-12.3); Neutrophils % 45.4 % (41.7-73.7); Platelets 284 thou/uL (152-406); Red Cell Distribution Width 13.2 % (12.1-15.2)
[2024-08-01 17:34] LABS: PT Prothrombin Time 13.1 SECONDS (9.4-12.5); Protime INR 1.18
[2024-08-01] MEDS ORDERED: dexAMETHasone 10 MG/ML VIAL ONE (17:40)
[2024-08-01] MEDS ORDERED: ONDANSETRON 4 MG/2 ML VIAL ONE (17:40)
[2024-08-01] MEDS ORDERED: ASPIRIN 81 MG CHEWABLE TABLET ONE (17:40)
[2024-08-01] MEDS ORDERED: KETOROLAC 30 MG/ML INJ ONE (17:40)
[2024-08-01] MEDS ORDERED: FENTANYL CITR 100 MCG/2 ML ONE (17:41)
[2024-08-01] MEDS ORDERED: NA CHLORIDE 0.9% 500 ML ONE (17:41)
[2024-08-01 17:52] LABS: ALT/SGPT 31 U/L (13-56); AST/SGOT 19 U/L (15-37); Albumin 3.6 g/dL (3.4-5.0); Albumin/Globulin Ratio 0.8 (1.1-1.8); Alkaline Phosphatase 67 U/L (45-117); Anion Gap 9.9 mEq/L (5.0-15.0); BUN Blood Urea Nitrogen 13 mg/dL (7-18); Bicarbonate 26 mEq/L (21-32); Bilirubin Total 0.3 mg/dL (0.2-1.0); Globulin 4.3 g/dL (2.3-3.5); Glomerular Filtration Rate 51 ml/min (=/>90); Glucose Level 107 mg/dL (74-106); Magnesium 2.1 mg/dL (1.6-2.4); NT PRO-BNP 13 pg/mL (<125); Potassium 3.9 mEq/L (3.5-5.1); Protein, Total 7.9 g/dL (6.4-8.2); Sodium Level 138 mEq/L (136-145); Troponin High Sensitivity 4.5 pg/mL (<58.9)
[2024-08-01 17:55] LABS: Bilirubin Direct < 0.2 mg/dL (0-0.2); Bilirubin Indirect, Calculated 0.1 mg/dL (0.2-0.8)
--- NOTE | 2024-08-01 18:00 | RAD REPORT ---
EXAMINATION: CT CERVICAL SPINE WITHOUT CONTRAST CLINICAL INDICATION: Female, 54 years old. PAIN TECHNIQUE: Axial CT images through the cervical spine were obtained without intravenous contrast. Sag ittal and coronal reformatted images were created from the data set. One or more of the following dose reduction techniques were used: Automated exposure control, adjustment of the mA and/or kV accor ding to patient size, and/or iterative reconstruction. Unless otherwise specified, incidental findings do not require dedicated imaging follow-up. [id number]. COMPARISON: No prior exam. FINDINGS: ALIGNMENT: The cervical spine has normal alignment without scoliosis or spondylolisthesis. BONE: Vertebral body heights are maintained. No aggressive osseous lesions. DISCS: Mild disc height loss at C3-4 and C4-5. Broad-based disc bulges are present at C3-4 and C4-5. LEVELS: Cervical spondylosis is present. Is mild central spinal stenosis at C3-4 and C4-5 secondary t o broad-based disc bulges. The neural foramen are severely narrowed on the left at these 2 levels. There are moderately narrowed on the right. There is also moderate bilateral neural foraminal narrowi ng at C5-6. SOFT TISSUE: No significant abnormalities in the soft tissue of the neck. The visualized lung apices are clear. IMPRESSION: No acute fracture cervical spine. Disc bulges at C3-4 and C4-5 with particular narrowing at the left C3-4 and C4-5 neural foramen which could explain the patient's reported left radiculopathy.
--- NOTE | 2024-08-01 18:18 | RAD REPORT ---
EXAMINATION: Shoulder Left 2+ Views CLINICAL INDICATION: Female, 54 years old. PAIN COMPARISON: No prior exam. FINDINGS: No acute fracture. No malalignment/dislocation. No significant focal degenerative change. Other: Ossification adjacent to the greater tuberosity is chronic and consistent with calcific tendin itis. IMPRESSION: No acute osseous abnormality.
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
--- NOTE | 2024-08-01 18:46 | EDPHYS ---
Physician Documentation [facility] Name: Marily Parks Age: 54 yrs Sex: Female : 1970 Arrival Date: 08/01/2024 Time: 16:47 Bed 4 Private MD: ED Physician Papi Pro HPI: 08/01 17:51 This 54 yrs old Black Female presents to ER via Ambulatory with complaints of Arm Pain. danie COOLER MAN: 19:47 Not cp4 Historical: - Allergies: 17:08 Iodine; tm6 - PMHx: 17:08 DVT; Hypertension; Pulmonary Embolism; Depressive disorder; tm6 - Immunization history:: Flu vaccine is not up to date. - Infectious Disease History:: Denies. - Social history:: Smoking status: Patient denies any tobacco usage or history of. ROS: 17:52 Constitutional: Negative for fever, chills, and weight loss, Eyes: Negative for injury, danie pain, redness, and discharge, ENT: Negative for injury, pain, and discharge, Cardiovascular: Negative for chest pain, palpitations, and edema, Respiratory: Negative for shortness of breath, cough, wheezing, and pleuritic chest pain, Abdomen/GI: Negative for abdominal pain, nausea, vomiting, diarrhea, and constipation, Back: Negative for injury and pain, : Negative for injury, bleeding, discharge, and swelling, Skin: Negative for injury, rash, and discoloration, Neuro: Negative for headache, weakness, numbness, tingling, and seizure, Psych: Negative for depression, anxiety, suicide ideation, homicidal ideation, and hallucinations, Allergy/Immunology: Negative for hives, rash, and allergies, Endocrine: Negative for neck swelling, polydipsia, polyuria, polyphagia, and marked weight changes, Hematologic/Lymphatic: Negative for swollen nodes, abnormal bleeding, and unusual bruising, 17:52 Neck: Positive for pain with movement, pain at rest, tenderness, of the neck and left arm, 17:52 MS/extremity: Positive for decreased range of motion, pain, tenderness, of the anterior aspect of left shoulder and posterior aspect of left shoulder, 17:52 Neuro: Positive for Exam: 17:52 Constitutional: This is a well developed, well nourished patient who is awake, alert, danie and in no acute distress. Head/Face: Normocephalic, atraumatic. Eyes: Pupils equal round and reactive to light, extra-ocular motions intact. Lids and lashes normal. Conjunctiva and sclera are non-icteric and not injected. Cornea within normal limits. Periorbital areas with no swelling, redness, or edema. ENT: Nares patent. No nasal discharge, no septal abnormalities noted. Tympanic membranes are normal and external auditory canals are clear. Oropharynx with no redness, swelling, or masses, exudates, or evidence of obstruction, uvula midline. Mucous membranes moist. Chest/axilla: Normal chest wall appearance and motion. Nontender with no deformity. No lesions are appreciated. Cardiovascular: Regular rate and rhythm with a normal S1 and S2. No gallops, murmurs, or rubs. Normal PMI, no JVD. No pulse deficits. Respiratory: Lungs have equal breath sounds bilaterally, clear to auscultation and percussion. No rales, rhonchi or wheezes noted. No increased work of breathing, no retractions or nasal flaring. Abdomen/GI: Soft, non-tender, with normal bowel sounds. No distension or tympany. No guarding or rebound. No evidence of tenderness throughout. Back: No spinal tenderness. No costovertebral tenderness. Full range of motion. Pelvic Exam: Normal external genitalia. Speculum exam with closed cervical os, no discharge or bleeding noted. Bimanual exam with normal adnexa, no adnexal or cervical motion tenderness. Normal uterus. Female : Normal external genitalia. Skin: Warm, dry with normal turgor. Normal color with no rashes, no lesions, and no evidence of cellulitis. Neuro: Awake and alert, GCS 15, oriented to person, place, time, and situation. Cranial nerves II-XII grossly intact. Motor strength 5/5 in all extremities. Sensory grossly intact. Cerebellar exam normal. Normal gait. Psych: Awake, alert, with orientation to person, place and time. Behavior, mood, and affect are within normal limits. 17:52 Neck: C-spine: no acute changes, Thyroid: appears normal, Trachea: is midline with no obvious abnormalities, ROM/movement: limited range of motion, that is moderate, when rotating to the right, when rotating to the left, with flexion, with extension, Lymph nodes: no appreciated lymphadenopathy, 18:04 ECG was reviewed by the Attending Physician. [facility] Vital Signs: 17:05 BP 120 / 86; Pulse 76; Resp 19; Temp 98.2(O); Pulse Ox 96% on R/A; MAP 96 mmHg; Weight tm6 79.83 kg; Height 5 ft. 2 in. ; Pain 10/10; 18:31 BP 112 / 82; Pulse 56; Resp 15; Pulse Ox 98% ; bp 19:44 BP 117 / 73; Pulse 66; Resp 18; Pulse Ox 98% ; cp4 17:05 Body Mass Index 32.19 (79.83 kg, 157.48 cm) tm6 17:05 Pain Scale: Adult tm6 MDM: 17:00 Medical Screening Exam initiated danie 17:55 Differential diagnosis: closed fracture, contusion, tendonitis. Data reviewed: vital [facility] signs, nurses notes, lab test result(s), EKG, radiologic studies, CT scan, doppler, plain films. Consideration of Admission/Observation Escalation of care including admission/observation considered. I considered the following discharge prescriptions or medication management in the emergency department Medications were administered in the Emergency Department. See MAR. Independent interpretation of the following test(s) in the Emergency Department EKG: See my EKG interpretation above. Test considered but Not performed: MRI: no mri c spine. Historians other than the Patient: Family Member: family well informed. Care significantly affected by the following chronic conditions: Hypertension, Obesity, dvt , pe. Counseling: I had a detailed discussion with the patient and/or guardian regarding the historical points, exam findings, and any diagnostic results supporting the discharge/admit diagnosis, lab results, radiology results, the need for outpatient follow up, for definitive care, a family practitioner, a neurologist. 08/01 17: Order name: Basic Metabolic Panel; Complete Time: 18:[address] [facility] 08/01 17: Order name: CBC with Diff; Complete Time: 18:[address] [facility] 08/01 17: Order name: LFT's; Complete Time: 18:[address] [facility] 08/01 17: Order name: Magnesium; Complete Time: 18:[address] [facility] 08/01 17: Order name: NT PRO-BNP; Complete Time: 18:[address] [facility] 08/01 17: Order name: PT-INR; Complete Time: 18:[address] [facility] 08/01 17: Order name: Troponin HS; Complete Time: 18:[address] [facility] 08/01 17:01 Order name: XRAY Chest (1 view); Complete Time: 17:[address] [facility] 08/01 17:15 Order name: CT C Spine; Complete Time: 18:[address] [facility] 08/01 17:22 Order name: Shoulder Left (2 View) XRAY; Complete Time: 18:[address] [facility] 08/01 17:58 Order name: UPPER EXTREMITY VENOUS UNILATE EDWI 08/01 17:01 Order name: EKG; Complete Time: 17:[address] [facility] 08/01 17:01 Order name: Cardiac monitoring; Complete Time: 17:[address] [facility] 08/01 17:01 Order name: EKG - Nurse/Tech; Complete Time: 17:[address] [facility] 08/01 17:01 Order name: IV Saline Lock; Complete Time: 17:[address] [facility] 08/01 17:01 Order name: Labs collected and sent; Complete Time: 17:[address] [facility] 08/01 17:01 Order name: O2 Per Protocol; Complete Time: 17:[address] [facility] 08/01 17:01 Order name: O2 Sat Monitoring; Complete Time: 17: [facility] 08/01 18:49 Order name: Sling; Complete Time: 19:[address] [facility] EC:04 Rate is 70 beats/min. Rhythm is regular. QRS [place] is Normal. [place] interval is normal. QRS danie interval is normal. QT interval is normal. No Q waves. T waves are Normal. No ST changes noted. Clinical impression: Normal ECG and No evidence of ischemia. Interpreted by me. Reviewed by me. Administered Medications: 18:00 Drug: Ketorolac IVP 30 mg IVP once Route: IVP; Site: right forearm; bp 18:01 Drug: NS 0.9% IV 500 ml IV at bolus once; to be given as a bolus over 30 minutes Route: bp IV; Rate: bolus; Site: right forearm; 18:01 Drug: Aspirin PO Chewable Tablet 162 mg PO once Route: PO; bp 18:01 Drug: fentaNYL (PF) IVP 25 mcg IVP once Route: IVP; Site: right forearm; bp 18:01 Drug: fentaNYL (PF) IVP 25 mcg IVP once Route: IVP; Site: right forearm; bp 18:01 Drug: Ondansetron IVP 4 mg IVP once; over 2 minutes Route: IVP; Site: right forearm; bp 18:01 Drug: Decadron - Dexamethasone IVP 10 mg IVP once Route: IVP; Site: right forearm; bp Disposition Summary: 08/01/24 18:46 Discharge Ordered Notes: Location: Home [facility] Problem: new danie Symptoms: have improved danie Condition: Stable danie Diagnosis - Cervical disc disorder with radiculopathy danie - Pain in left shoulder danie - Unspecified symptoms and signs involving the musculoskeletal system danie Followup: danie - With: Private Physician - When: 2 - 3 days - Reason: Recheck today's complaints, Continuance of care, Re-evaluation by your physician Followup: danie - With: Gustavo Joseph MD - When: 2 - 3 days - Reason: Recheck today's complaints, Re-evaluation by your physician Discharge Instructions: - Discharge Summary Sheet danie - Joint Pain danie - Cervical Radiculopathy danie - Musculoskeletal Pain danie - Shoulder Pain danie - Shoulder Pain, [id number] danie - Cervical Radiculopathy, [id number] [facility] Forms: - Medication Reconciliation Form danie - Antibiotic Education danie - Prescription Opioid Use danie - Patient Portal Instructions [facility] - Leadership Thank You Letter [facility] Prescriptions: - acetaminophen-codeine 300-30 mg Oral tablet - take 2 tablet ORAL route every 6 hours; 20 tablet; Refills: 0, Product danie Selection Permitted - dexamethasone 4 mg Oral tablet - take 1 tablet ORAL route once daily; 5 tablet; Refills: 0, Product Selection danie Permitted - diclofenac sodium 50 mg Oral tablet, delayed release (enteric coated) - take 1 tablet ORAL route 3 times per day; 30 tablet; Refills: 0, Product danie Selection Permitted - methocarbamol 750 mg Oral tablet - take 1 tablet ORAL route 4 times per day; 36 tablet; Refills: 0, Product danie Selection Permitted Signatures: Dispatcher [employer] EDMS Papi Pro MD MD cha Peltier, Brian, RN RN bp Cecilia Jiménez RN RN tm6 Corrections: (The following items were deleted from the chart) 17:16 17:16 Extremity Venous Uni Ltd+US.RAD.BRZ ordered. EDMS EDMS 17:16 17:16 C Spine Wo Con+CT.RAD.BRZ ordered. EDMS EDMS 17:22 17:22 Shoulder Left 2 View+RAD.RAD.BRZ ordered. EDMS EDMS
--- NOTE | 2024-08-01 19:49 | RAD REPORT ---
UPPER EXTREMITY VENOUS UNILATE CLINICAL INDICATION: Female, 54 years old.Pain;Swelling TECHNIQUE: Complete duplex sonography of the lower extremity veins was performed of the affected limb . The examination included compression for vein patency, color Doppler imaging and flow augmentation in response to distal compression of the distal external iliac, common femoral, femoral, popliteal, peroneal, tibial and great saphenous veins. [id number]. COMPARISON: No prior exams FINDINGS: Duplex sonography imaging demonstrates all deep examined to be fully compressible with spontaneous, p hasic and augmented flow in the affected limb. IMPRESSION: EXAM: Left upper extremity venous ultrasound HISTORY: Left upper extremity pain and edema COMPARISON: None TECHNIQUE: Multiplanar grayscale and color Doppler images were obtained in a left upper extremity heena ous ultrasound. Spectral analysis of the Doppler waveforms were performed. FINDINGS: The internal jugular vein demonstrates normal compression and flow without evidence of thrombus. The subclavian vein demonstrates normal flow and augmentation without evidence of thrombus. The axillary and brachial veins demonstrate normal compression, flow, and augmentation without eviden ce of thrombus. The venous structures distal to the elbow are patent without thrombus. The cephalic and basilic veins are patent. IMPRESSION: No evidence of DVT.
[2024-08-01 23:07] VITALS: TEMP 98.2
[2024-08-01 23:13] VITALS: O2SAT 98
[2024-08-01 23:18] VITALS: BP 117/73
--- NOTE | 2024-08-03 14:15 | EKG ---
Test Date: 2024-08-01 Test Time: 17:20:39 Personal Lines Sales Executive: ISAAC MEASUREMENT RESULTS: Intervals: Rate: 70 [place]: 168 QRSD: 86 QT: 404 QTc: 436 [place]: P: 58 [place]: 168 QRS: 76 T: 61 INTERPRETIVE STATEMENTS: Normal sinus rhythm Normal ECG Compared to ECG 11/11/2023 06:41:47 Sinus bradycardia no longer present Electronically Signed On 08-03-24 14:12:22 CREDIT ANALYSIS MANAGER by Shamir Palomino
== END 2024-08-01 19:47 | disposition home or self-care (01) ==
LOC: ER 16:47
DX: M50.10 Cervical disc disorder with radiculopathy, unspecified cervical region (principal); R29.91 Unspecified symptoms and signs involving the musculoskeletal system
CPT/HCPCS: 93005; 85025; 80048; 36415; 83735; 85610; 80076; 84484; 83880; 72125; 71045; 73030; 93971; 96375; 96374; 99284; J3010; J1100; J2405; J7040